=== PATIENT | male | born 1950 | race Caucasian/White ===

== ENCOUNTER 2021-06-07 00:55 | Inpatient (IN) | payer MEDICARE ==
[2021-06-07] MEDS ORDERED: Ondansetron PF 4 MG/2 ML Vial IVP PRN (01:27)
[2021-06-07] MEDS ORDERED: HYDROcodone/Acetaminophen 5/325 mg Tablet PO PRN (01:27)
[2021-06-07] MEDS ORDERED: Calcium Carbonate 500 MG ChewTAB PO PRN (01:27)
[2021-06-07] MEDS ORDERED: Guaifenesin DM 100-10/5 ML UDCUP PO PRN (01:27)
[2021-06-07] MEDS ORDERED: Senokot S 8.6-50 MG TAB PO PRN (01:27)
[2021-06-07] MEDS ORDERED: Acetaminophen 325 MG TAB PO PRN (01:27)
[2021-06-07] MEDS ORDERED: Dextrose 5% in Water 1,000 ML IV PRN (01:38)
[2021-06-07] MEDS ORDERED: Dextrose 50% Abboject 50 ML SYRINGE SLOW IVP PRN (01:38)
[2021-06-07 01:49] VITALS: BMI 24.4
[2021-06-07 02:15] LABS: Actual Bicarbonate (HCO3a) 44.6 mEq/L (22-28); Base Excess (BEa) 16.7 mEq/L (-2.0 to +3.0); CO2 Tension 68.8 mmHg (35.0-45.0); Calcium, Ionized (arterial) 1.19 mmol/L (1.12-1.30); Carboxyhemoglobin (COHb) 0.8 gm% (0.0-3.0); Hemoglobin (Hb) 13.7 g/dL (14.0-18.0); O2 Tension (PaO2), arterial 64.4 mmHg (> 80.0); Potassium - ABG Lab 4.3 mmol/L (3.70-5.30); Puncture Site RRA; pH, Arterial 7.43 (7.35-7.45)
[2021-06-07 02:23] LABS: #Monocytes 0.2 10x3/uL (0.0-1.1); #Neutrophils 9.2 10x3/uL (1.5-8.4); %Basophils 0.4 % (0.0-2.0); %Lymphocytes 3.8 % (18.0-47.0); %Monocytes 2.3 % (0.0-10.0); %Neutrophils 92.4 % (40.0-75.0); Hemoglobin 13.1 g/dL (13.5-17.5); Mean Corpuscular Hemoglobin 29.8 pg (27.0-33.0); Mean Corpuscular Volume 95.9 fl (81.2-95.1); Mean Platelet Volume 8.8 fl (7.4-10.4); Platelet Count 223 10x3/uL (150-450); RBC Distribution Width 16.7 % (11.5-14.5); White Blood Cell (WBC) Count 9.9 10x3/uL (3.5-10.5)
[2021-06-07 02:34] LABS: Bilirubin Neg (Negative); Blood, Urine Negative (Negative); Clarity Clear (Clear); Glucose, Urine (Dipstick) Normal (Negative); Ketone, Urine Negative (Negative); Leukocyte Negative (Negative); Nitrite Negative (Negative); Protein, Urine (Dipstick) Negative (Neg-Trace); Specific Gravity, Urine 1.005 (1.002-1.036); Urobilinogen Normal mg/dL (Less than 2)
[2021-06-07 02:37] LABS: BUN (Urea Nitrogen) 24 mg/dL (8.4-25.7); Calc. Creatinine Clearance 139 mL/min (70-130); Calcium 9.4 mg/dL (7.8-10.44); Glucose 226 mg/dL (80-115)
[2021-06-07 02:44] LABS: Anion Gap 20 mmol/L (10-20); Carbon Dioxide 37 mmol/L (23-31); Chloride 91 mmol/L (98-107); Potassium 5.2 mmol/L (3.5-5.1); Sodium 143 mmol/L (136-145)
[2021-06-07 02:52] LABS: Bacteria/HPF None Seen HPF (None Seen); RBC/HPF None Seen HPF (0-3); Squamous Epithelial 0-3 HPF (0-3); WBC/HPF None Seen HPF (0-3)
[2021-06-07] MEDS ORDERED: FLU VACC QS2021-22(65YR UP)/PF 240 MCG/0.7 ML SYRINGE IM ONE (03:30)
[2021-06-07] MEDS: methylPREDNISolone Sod Succ 40 MG VIAL IVP SCH ×4 (05:45→23:51)
[2021-06-07] MEDS: Mometasone/Formoterol 200/5 60 PUFF INH SCH ×2 (06:44→20:05)
[2021-06-07] MEDS ORDERED: Furosemide 40 MG TAB PO SCH (07:30)
[2021-06-07] MEDS: HumaLOG 300 UNITS/3 ML VIAL SC PRN ×3 (08:24→20:52)
[2021-06-07] MEDS: Famotidine 20 MG TAB PO SCH ×2 (08:42→20:51)
[2021-06-07] MEDS: guaiFENesin ER 600 MG TAB PO SCH ×2 (08:43→20:54)
[2021-06-07] MEDS: Carvedilol 3.125 MG TAB PO SCH ×2 (08:43→16:51)
[2021-06-07] MEDS: Benzonatate 100 MG CAP PO SCH ×3 (08:43→20:51)
[2021-06-07] MEDS ORDERED: Sotalol HCl 80 MG TAB PO SCH ×2 (09:00)
[2021-06-07] MEDS ORDERED: Polyethylene Glycol 3350 17 GM Packet PO SCH (09:00)
[2021-06-07] MEDS ORDERED: Ubidecarenone 50 MG CAP PO SCH (09:00)
[2021-06-07] MEDS ORDERED: Aspirin 81 mg Enteric Coated Tablet PO SCH (09:00)
[2021-06-07] MEDS ORDERED: Apixaban 5 MG TAB PO SCH (09:00)
[2021-06-07] MEDS ORDERED: Acetylcysteine 20% 200 MG/ML 30 ML VIAL PO SCH (09:00)
[2021-06-07 10:39] LABS: Actual Bicarbonate (HCO3v) 39 mEq/L (22-28); Base Excess 10.9 mEq/L (-2.0 to +3.0); Calcium, Ionized (venous) 1.16 mmol/L (1.16-1.32); Chloride (VBG) 90 mmol/L (98-106); Hemoglobin (Hb) 13.2 g/dL (12.6-17.4); Potassium (VBG) 4.06 mmol/L (3.70-5.30); Puncture Site Other Site; Sodium 135.5 mmol/L (133-146); pH (venous) 7.37 (7.32-7.43)
[2021-06-07 10:40] LABS: BUN (Urea Nitrogen) 27 mg/dL (8.4-25.7); Calc. Creatinine Clearance 143 mL/min (70-130); Calcium 8.9 mg/dL (7.8-10.44); Glucose 289 mg/dL (80-115)
[2021-06-07 10:47] LABS: Anion Gap 16 mmol/L (10-20); Carbon Dioxide 37 mmol/L (23-31); Chloride 90 mmol/L (98-107); Potassium 4.2 mmol/L (3.5-5.1); Sodium 139 mmol/L (136-145)
[2021-06-07] MEDS ORDERED: ALPRAZolam 0.5 MG TAB PO PRN (17:59)
[2021-06-07] MEDS: Apixaban 5 MG TAB PO SCH (20:51)
[2021-06-07] MEDS ORDERED: Montelukast Sodium 10 mg Tablet PO SCH ×2 (21:00)
[2021-06-07] MEDS ORDERED: Tamsulosin HCl 0.4 MG CAP PO SCH ×2 (21:00)
[2021-06-07] MEDS ORDERED: Lantus 1000 UNITS/10 ML VIAL SC SCH (21:00)
[2021-06-07] MEDS ORDERED: Atorvastatin Calcium 10 MG TAB PO SCH (21:00)
[2021-06-07] MEDS ORDERED: Acetylcysteine 800 MG/4 ML VIAL PO SCH (21:00)
[2021-06-07] MEDS ORDERED: Amiodarone 200 MG TAB PO SCH (21:00)
[2021-06-08 03:34] LABS: #Monocytes 0.4 10x3/uL (0.0-1.1); #Neutrophils 10.3 10x3/uL (1.5-8.4); %Basophils 0.1 % (0.0-2.0); %Lymphocytes 3.4 % (18.0-47.0); %Monocytes 3.7 % (0.0-10.0); %Neutrophils 91.8 % (40.0-75.0); Hemoglobin 13.2 g/dL (13.5-17.5); Mean Corpuscular HGB CONC 31.2 g/dL (32.0-36.0); Mean Corpuscular Hemoglobin 29.7 pg (27.0-33.0); Mean Corpuscular Volume 95.1 fl (81.2-95.1); Platelet Count 217 10x3/uL (150-450); Red Blood Cell (RBC) Count 4.45 10x6/uL (4.32-5.72); White Blood Cell (WBC) Count 11.3 10x3/uL (3.5-10.5)
[2021-06-08 04:44] VITALS: TEMP 98
[2021-06-08] MEDS: methylPREDNISolone Sod Succ 40 MG VIAL IVP SCH (05:29)
[2021-06-08 06:28] LABS: ALT (SGPT) 19 U/L (8-55); AST (SGOT) 14 U/L (5-34); Albumin 3.1 g/dL (3.4-4.8); Alkaline Phosphatase 66 U/L (40-110); BUN (Urea Nitrogen) 31 mg/dL (8.4-25.7); Bilirubin, Total 0.2 mg/dL (0.2-1.2); Calc. Creatinine Clearance 139 mL/min (70-130); Calcium 9.2 mg/dL (7.8-10.44); Cardiac Risk 3.1 (Less than 4.5); Cholesterol 176 mg/dl (< 200 Desired); Globulin 2.1 g/dL (2.4-3.5); Glucose 248 mg/dL (80-115); HDL Cholesterol 57 mg/dL (>60 Neg Risk); LDL Cholesterol, Calculated 101 mg/dL; Magnesium 2.2 mg/dL (1.6-2.6); Phosphorus 2.7 mg/dL (2.3-4.7); Protein, Total 5.2 g/dL (5.8-8.1); Triglycerides 90 mg/dL (Less than 150)
[2021-06-08 06:36] LABS: Anion Gap 16 mmol/L (10-20); Carbon Dioxide 35 mmol/L (23-31); Chloride 93 mmol/L (98-107); Potassium 4.4 mmol/L (3.5-5.1); Sodium 140 mmol/L (136-145)
[2021-06-08] MEDS ORDERED: glipiZIDE 5 MG TAB PO SCH (07:30)
[2021-06-08] MEDS ORDERED: metFORMIN 500 MG TAB PO SCH (08:00)
[2021-06-08] MEDS ORDERED: Carvedilol 3.125 MG TAB PO SCH (08:00)
[2021-06-08] MEDS: Famotidine 20 MG TAB PO SCH (08:25)
[2021-06-08] MEDS: Apixaban 5 MG TAB PO SCH (08:25)
[2021-06-08] MEDS: guaiFENesin ER 600 MG TAB PO SCH (08:26)
[2021-06-08] MEDS: Benzonatate 100 MG CAP PO SCH (08:26)
[2021-06-08] MEDS: HumaLOG 300 UNITS/3 ML VIAL SC PRN (08:28)
[2021-06-08 08:38] VITALS: BP 143/77
[2021-06-08] MEDS: Mometasone/Formoterol 200/5 60 PUFF INH SCH (08:38)
[2021-06-08] MEDS ORDERED: Digoxin 0.25 MG TAB PO SCH (09:00)
[2021-06-08] MEDS ORDERED: Polyethylene Glycol 3350 17 GM Packet PO SCH (09:00)
[2021-06-08] MEDS ORDERED: Aspirin 81 mg Enteric Coated Tablet PO SCH (09:00)
[2021-06-08] MEDS ORDERED: Multivit, Therapeutic 1 TAB PO SCH (09:00)
[2021-06-08] MEDS ORDERED: Furosemide 40 MG TAB PO SCH (09:00)
[2021-06-08] MEDS ORDERED: Ubidecarenone 50 MG CAP PO SCH (09:00)
[2021-06-08] MEDS ORDERED: Sotalol HCl 80 MG TAB PO SCH (09:00)
[2021-06-08 11:30] LABS: Hemoglobin A1c 5.4 % (4.0-6.0)
== END 2021-06-08 12:15 | disposition home or self-care (01) | DRG 291 ==
LOC: CSHIMCU 00:55
PROVIDERS: ADMIT Student in an Organized Health Care Education/Training Program; ATTEND Family Medicine
DX: I11.0 Hypertensive heart disease with heart failure (principal); J96.21 Acute and chronic respiratory failure with hypoxia; I50.43 Acute on chronic combined systolic (congestive) and diastolic (congestive) heart failure; J96.22 Acute and chronic respiratory failure with hypercapnia; J44.1 Chronic obstructive pulmonary disease with (acute) exacerbation; E87.2 Acidosis; E11.65 Type 2 diabetes mellitus with hyperglycemia; N40.0 Benign prostatic hyperplasia without lower urinary tract symptoms; I42.8 Other cardiomyopathies; E78.2 Mixed hyperlipidemia; I95.1 Orthostatic hypotension; I48.0 Paroxysmal atrial fibrillation; Z99.81 Dependence on supplemental oxygen; Z95.810 Presence of automatic (implantable) cardiac defibrillator; Z79.01 Long term (current) use of anticoagulants; Z79.82 Long term (current) use of aspirin; Z79.899 Other long term (current) drug therapy; Z86.711 Personal history of pulmonary embolism; Z87.891 Personal history of nicotine dependence; Z79.52 Long term (current) use of systemic steroids
CPT/HCPCS: 36415; 36416; 36600; 80048; 80053; 80061; 81001; 82805; 83036; 83735; 84100; 85025; 87070; 87205; 87804; 90471; 90662; 93306; 94640; 94760; G0008; J1815; J2920; J7620

== ENCOUNTER 2021-06-17 19:56 | Emergency (ER) | payer MEDICARE ==
[2021-06-17 20:32] LABS: #Monocytes 0.6 10x3/uL (0.0-1.1); %Basophils 0.2 % (0.0-2.0); %Lymphocytes 3.4 % (18.0-47.0); %Monocytes 4.5 % (0.0-10.0); %Neutrophils 89.7 % (40.0-75.0); Hemoglobin 12.8 g/dL (13.5-17.5); Mean Corpuscular HGB CONC 30.6 g/dL (32.0-36.0); Mean Corpuscular Hemoglobin 29.6 pg (27.0-33.0); Mean Corpuscular Volume 96.8 fl (81.2-95.1); Mean Platelet Volume 8.7 fl (7.4-10.4); Platelet Count 209 10x3/uL (150-450); RBC Distribution Width 15.9 % (11.5-14.5); Red Blood Cell (RBC) Count 4.32 10x6/uL (4.32-5.72); White Blood Cell (WBC) Count 13.4 10x3/uL (3.5-10.5)
[2021-06-17 20:42] LABS: ALT (SGPT) 35 U/L (8-55); AST (SGOT) 21 U/L (5-34); Albumin 3.1 g/dL (3.4-4.8); Alkaline Phosphatase 78 U/L (40-110); BUN (Urea Nitrogen) 27 mg/dL (8.4-25.7); Bilirubin, Total 0.4 mg/dL (0.2-1.2); Calc. Creatinine Clearance 0 mL/min (70-130); Calcium 8.8 mg/dL (7.8-10.44); Globulin 1.8 g/dL (2.4-3.5); Glucose 178 mg/dL (80-115); Protein, Total 4.9 g/dL (5.8-8.1)
[2021-06-17 20:49] LABS: Anion Gap 14 mmol/L (10-20); Carbon Dioxide 40 mmol/L (23-31); Chloride 89 mmol/L (98-107); Potassium 5.2 mmol/L (3.5-5.1); Sodium 138 mmol/L (136-145)
[2021-06-17 21:04] LABS: CKMB 5.7 ng/mL (0-6.6)
[2021-06-17] MEDS ORDERED: Furosemide 40 MG/4 ML VIAL ONE (21:42)
[2021-06-17] MEDS ORDERED: Aspirin Chewable 81 MG TAB ONE (21:42)
[2021-06-18 00:55] LABS: SARS-CoV-2 NAA Rapid Test Not Detected (NotDetected)
== END 2021-06-18 01:04 | disposition short-term general hospital (02) ==
LOC: CSHERS 19:56
DX: I11.0 Hypertensive heart disease with heart failure (principal); I50.9 Heart failure, unspecified; J44.9 Chronic obstructive pulmonary disease, unspecified; Z20.822 Contact with and (suspected) exposure to COVID-19; Z87.891 Personal history of nicotine dependence; Z95.810 Presence of automatic (implantable) cardiac defibrillator; Z86.718 Personal history of other venous thrombosis and embolism
CPT/HCPCS: 71045; 80053; 82553; 83880; 84484; 85025; 93005; 96374; J1940; U0002

== ENCOUNTER 2023-03-19 13:13 | Inpatient (IN) | payer OTHER ==
[~2023-03-19 13:13] MED LIST: Iopamidol 370 76% 100 ML VIAL ONE
[2023-03-19 14:24] LABS: #Eosinphils 0.1 10x3/uL (0.0-0.5); #Monocytes 0.5 10x3/uL (0.0-1.1); #Neutrophils 6.2 10x3/uL (1.5-8.4); %Basophils 0.4 % (0.0-2.0); %Eosinophils 1.7 % (0.0-6.0); %Lymphocytes 7.5 % (18.0-47.0); %Monocytes 6.7 % (0.0-10.0); %Neutrophils 83.3 % (40.0-75.0); Hematocrit 40.7 % (38.8-50.0); Hemoglobin 11.5 g/dL (13.5-17.5); Mean Corpuscular HGB CONC 28.3 g/dL (32.0-36.0); Mean Corpuscular Volume 99.3 fl (81.2-95.1); Mean Platelet Volume 9.3 fl (7.4-10.4); Platelet Count 195 10x3/uL (150-450); RBC Distribution Width 13.9 % (11.5-14.5); White Blood Cell (WBC) Count 7.5 10x3/uL (3.5-10.5)
[2023-03-19 14:47] LABS: ALT (SGPT) 9 U/L (8-55); AST (SGOT) 15 U/L (5-34); Albumin 2.8 g/dL (3.4-4.8); Alkaline Phosphatase 81 U/L (40-110); BUN (Urea Nitrogen) 15 mg/dL (8.4-25.7); Bilirubin, Total 0.2 mg/dL (0.2-1.2); Calc. Creatinine Clearance 0 mL/min (70-130); Calcium 9.2 mg/dL (7.8-10.44); Estimated GFR 102; Globulin 2.5 g/dL (2.4-3.5); Glucose 132 mg/dL (83-110); Protein, Total 5.3 g/dL (5.8-8.1)
[2023-03-19 14:53] LABS: Troponin I Less than 0.010 ng/mL (< 0.028)
[2023-03-19 14:54] LABS: Anion Gap 13 mmol/L (10-20); Carbon Dioxide 44 mmol/L (23-31); Chloride 89 mmol/L (98-107); Potassium 4.4 mmol/L (3.5-5.1); Sodium 142 mmol/L (136-145)
[2023-03-19 15:33] LABS: Magnesium 2.1 mg/dL (1.6-2.6)
[2023-03-19 15:54] LABS: Bilirubin Neg (Negative); Blood, Urine 10 (Negative); Clarity Clear (Clear); Glucose, Urine (Dipstick) Normal (Negative); Ketone, Urine Negative (Negative); Leukocyte Negative (Negative); Nitrite Positive (Negative); Protein, Urine (Dipstick) 15 mg/dl (Neg-Trace); Urobilinogen Normal mg/dL (Less than 2)
[2023-03-19 16:46] LABS: Basophilic Stippling SLIGHT = 1-2 cells (100X) (None Seen); Polychromasia SLIGHT = 2-3 cells (100X) (0-2/hpf)
[2023-03-19 16:48] LABS: Hypochromia SLIGHT = 6-15 cells (100X) (0-5/hpf); Platelet Adequacy Comment Appears Adequate
[2023-03-19 16:54] LABS: CAUTI Indications for Culture Dysuria,urgency,freq; RBC/HPF 0-3 HPF (0-3)
[2023-03-19 16:55] LABS: Mucous/LPF 1+ LPF (<2+); Squamous Epithelial 0-3 HPF (0-3)
[2023-03-19 16:56] LABS: Bacteria/HPF 3+ HPF (None Seen); Urine Culture Reflex No No
[2023-03-19] MEDS ORDERED: cefTRIAXone (ROCEPHIN) 1 GM VIAL ONE (17:12)
[2023-03-19] MEDS ORDERED: Acetaminophen 650 MG Suppository PR PRN (17:17)
[2023-03-19] MEDS ORDERED: Ipratropium/Albuterol 3 ML NEB NEB PRN (17:20)
[2023-03-19 17:21] LABS: SARS-CoV-2 NAA Rapid Test Not Detected (NotDetected)
[2023-03-19] MEDS ORDERED: cefTRIAXone\\ROCEPHIN 1 GM in Sodium Chloride 0.9% 100 ML IVPB SCH (17:30)
[2023-03-19 17:46] LABS: Troponin I Less than 0.010 ng/mL (< 0.028)
[2023-03-19] MEDS ORDERED: Ipratropium Bromide 2.5 ml Neb NEB PRN (18:25)
[2023-03-19] MEDS: Mometasone/Formoterol 200/5 60 PUFF INH SCH (19:00)
[2023-03-19] MEDS: Ipratropium/Albuterol 3 ML NEB NEB SCH (19:00)
[2023-03-19 20:46] LABS: Troponin I Less than 0.010 ng/mL (< 0.028)
[2023-03-19] MEDS: Cefepime 2 GM in Sodium Chloride 0.9% 100 ML IVPB SCH (21:00)
[2023-03-19] MEDS ORDERED: Apixaban 5 MG TAB PO SCH (21:00)
[2023-03-19] MEDS: Vancomycin 1.5 GRAM/300 ML BAG 1.5 GM in Premix Bag 1 BAG IVPB SCH (21:28)
[2023-03-19 22:00] LABS: Actual Bicarbonate (HCO3a) 52.1 mEq/L (22-28); Base Excess (BEa) 16.7 mEq/L (-2.0 to +3.0); CO2 Tension 166.5 mmHg (35.0-45.0); Calcium, Ionized (arterial) 1.24 mmol/L (1.12-1.30); Carboxyhemoglobin (COHb) 0.7 gm% (0.0-3.0); Hematocrit-ABG 36 % (42.0-52.0); Hemoglobin (Hb) 12.1 g/dL (14.0-18.0); O2 Tension (PaO2), arterial 140.6 mmHg (> 70.0); Potassium - ABG Lab 4.79 mmol/L (3.70-5.30); Puncture Site LBA; pH, Arterial 7.113 (7.35-7.45)
[2023-03-19 22:03] LABS: ALV-art Gradient -92.045 mmHg (0-20)
[2023-03-19 22:26] LABS: Legionella Urinary Ag Negative (Negative)
[2023-03-19] MEDS: methylPREDNISolone Sod Succ 40 MG VIAL IVP SCH (23:06)
[2023-03-19] MEDS ORDERED: Lorazepam 2 MG/ML VIAL SLOW IVP SCH (23:45)
[2023-03-19] MEDS ORDERED: Morphine 2 MG/ML VIAL SLOW IVP SCH (23:45)
[2023-03-20] MEDS ORDERED: Sterile Water 10 ML ONE (00:27)
[2023-03-20] MEDS ORDERED: Lorazepam 2 MG/ML VIAL SLOW IVP SCH (00:30)
[2023-03-20] MEDS ORDERED: Sterile Water 10 ML VIAL FS PRN (00:30)
[2023-03-20] MEDS ORDERED: Ziprasidone 20 MG VIAL IM SCH (00:30)
[2023-03-20] MEDS: Ipratropium/Albuterol 3 ML NEB NEB SCH ×6 (01:04→22:50)
[2023-03-20 01:18] LABS: Base Excess 12.2 mEq/L (-2 - +2); Chloride (VBG) 92 mmol/L (98-106); Hematocrit-VBG 39 % (42.0-52.0); Hemoglobin (Hb) 13.1 g/dL (12.6-17.4); Potassium (VBG) 4.97 mmol/L (3.70-5.30); Puncture Site Other Site; RapidComm Collect By LAB; Sodium 137.2 mmol/L (133-146); pH (venous) 7.316 (7.32-7.43)
[2023-03-20 04:25] LABS: #Monocytes 0.3 10x3/uL (0.0-1.1); #Neutrophils 10.3 10x3/uL (1.5-8.4); %Basophils 0.1 % (0.0-2.0); %Lymphocytes 2.6 % (18.0-47.0); %Monocytes 2.5 % (0.0-10.0); %Neutrophils 94.2 % (40.0-75.0); Hematocrit 41.9 % (38.8-50.0); Hemoglobin 11.8 g/dL (13.5-17.5); Mean Corpuscular HGB CONC 28.2 g/dL (32.0-36.0); Mean Corpuscular Hemoglobin 27.9 pg (27.0-33.0); Mean Corpuscular Volume 99.1 fl (81.2-95.1); Mean Platelet Volume 9.2 fl (7.4-10.4); Platelet Count 251 10x3/uL (150-450); Red Blood Cell (RBC) Count 4.23 10x6/uL (4.32-5.72); White Blood Cell (WBC) Count 10.9 10x3/uL (3.5-10.5)
[2023-03-20 04:36] LABS: BUN (Urea Nitrogen) 18 mg/dL (8.4-25.7); Calc. Creatinine Clearance 149 mL/min (70-130); Calcium 9.5 mg/dL (7.8-10.44); Estimated GFR 100; Glucose 132 mg/dL (83-110)
[2023-03-20 04:44] LABS: Anion Gap 17 mmol/L (10-20); Carbon Dioxide 43 mmol/L (23-31); Chloride 89 mmol/L (98-107); Potassium 5.3 mmol/L (3.5-5.1); Sodium 144 mmol/L (136-145)
[2023-03-20] MEDS: methylPREDNISolone Sod Succ 40 MG VIAL IVP SCH ×4 (05:06→23:06)
[2023-03-20] MEDS: Mometasone/Formoterol 200/5 60 PUFF INH SCH ×2 (07:42→19:25)
[2023-03-20] MEDS: Cefepime 2 GM in Sodium Chloride 0.9% 100 ML IVPB SCH ×2 (07:51→20:39)
[2023-03-20] MEDS: Finasteride 5 MG TAB PO SCH (07:55)
[2023-03-20] MEDS: Aspirin 81 mg Enteric Coated Tablet PO SCH (07:55)
[2023-03-20] MEDS: Montelukast Sodium 10 mg Tablet PO SCH (07:55)
[2023-03-20] MEDS: Sotalol HCl 80 MG TAB PO SCH (08:01)
[2023-03-20] MEDS: Vancomycin 1.5 GRAM/300 ML BAG 1.5 GM in Premix Bag 1 BAG IVPB SCH ×2 (10:11→22:34)
[2023-03-20] MEDS: Lorazepam 2 MG/ML VIAL SLOW IVP PRN ×3 (11:26→23:04)
[2023-03-20] MEDS: Thiamine HCl 200 MG/2 ML VIAL SLOW IVP SCH (13:08)
[2023-03-20 14:57] LABS: BUN (Urea Nitrogen) 17 mg/dL (8.4-25.7); Calc. Creatinine Clearance 159 mL/min (70-130); Estimated GFR 101; Glucose 137 mg/dL (83-110)
[2023-03-20 15:04] LABS: Anion Gap 15 mmol/L (10-20); Carbon Dioxide 43 mmol/L (23-31); Chloride 90 mmol/L (98-107); Potassium 4.7 mmol/L (3.5-5.1); Sodium 143 mmol/L (136-145)
[2023-03-20] MEDS ORDERED: Dextrose 5 % And 0.9 % NaCl 1,000 ML IV SCH (16:15)
[2023-03-20] MEDS: Tamsulosin HCl 0.4 MG CAP PO SCH (20:39)
[2023-03-20] MEDS: Atorvastatin Calcium 20 MG TAB PO SCH (20:39)
[2023-03-21] MEDS ORDERED: Morphine 2 MG/ML VIAL SLOW IVP SCH (01:45)
[2023-03-21] MEDS: Ipratropium/Albuterol 3 ML NEB NEB SCH ×6 (02:35→22:30)
[2023-03-21 04:45] LABS: #Monocytes 0.7 10x3/uL (0.0-1.1); #Neutrophils 8.2 10x3/uL (1.5-8.4); %Basophils 0.1 % (0.0-2.0); %Lymphocytes 3.5 % (18.0-47.0); %Monocytes 7.3 % (0.0-10.0); %Neutrophils 88.8 % (40.0-75.0); Hematocrit 35.1 % (38.8-50.0); Hemoglobin 10.3 g/dL (13.5-17.5); Mean Corpuscular HGB CONC 29.3 g/dL (32.0-36.0); Mean Corpuscular Hemoglobin 27.5 pg (27.0-33.0); Mean Corpuscular Volume 93.6 fl (81.2-95.1); Mean Platelet Volume 9.2 fl (7.4-10.4); Platelet Count 266 10x3/uL (150-450); RBC Distribution Width 14.3 % (11.5-14.5); Red Blood Cell (RBC) Count 3.75 10x6/uL (4.32-5.72); White Blood Cell (WBC) Count 9.2 10x3/uL (3.5-10.5)
[2023-03-21 04:57] LABS: BUN (Urea Nitrogen) 21 mg/dL (8.4-25.7); Calc. Creatinine Clearance 150 mL/min (70-130); Calcium 9.1 mg/dL (7.8-10.44); Estimated GFR 100; Glucose 127 mg/dL (83-110)
[2023-03-21 05:02] LABS: Phosphorus 2.1 mg/dL (2.3-4.7)
[2023-03-21] MEDS: methylPREDNISolone Sod Succ 40 MG VIAL IVP SCH ×3 (05:10→17:47)
[2023-03-21] MEDS: Lorazepam 2 MG/ML VIAL SLOW IVP PRN (05:10)
[2023-03-21 05:17] LABS: Anion Gap 18 mmol/L (10-20); Carbon Dioxide 36 mmol/L (23-31); Chloride 92 mmol/L (98-107); Potassium 4.7 mmol/L (3.5-5.1); Sodium 141 mmol/L (136-145)
[2023-03-21] MEDS: Mometasone/Formoterol 200/5 60 PUFF INH SCH ×2 (07:28→18:45)
[2023-03-21] MEDS ORDERED: acetaZOLAMIDE Sodium 500 mg Vial IVP SCH (08:00)
[2023-03-21] MEDS: Aspirin 81 mg Enteric Coated Tablet PO SCH (08:28)
[2023-03-21] MEDS: Finasteride 5 MG TAB PO SCH (08:29)
[2023-03-21] MEDS ORDERED: Sodium Phosphate 15 MMOL in Sodium Chloride 0.9% 250 ML 250 ML IVPB SCH (08:30)
[2023-03-21] MEDS: Sotalol HCl 80 MG TAB PO SCH (08:31)
[2023-03-21] MEDS: Montelukast Sodium 10 mg Tablet PO SCH (08:31)
[2023-03-21] MEDS: Sertraline 100 MG TAB PO SCH (08:31)
[2023-03-21] MEDS: Cefepime 2 GM in Sodium Chloride 0.9% 100 ML IVPB SCH ×2 (08:32→21:23)
[2023-03-21] MEDS: Metoprolol Tartrate 5 MG/5 ML VIAL IVP SCH ×2 (08:38→21:24)
[2023-03-21 09:44] LABS: Vancomycin, Trough 15.1 ug/mL
[2023-03-21] MEDS: Vancomycin 1.5 GRAM/300 ML BAG 1.5 GM in Premix Bag 1 BAG IVPB SCH (10:14)
[2023-03-21] MEDS: Thiamine HCl 200 MG/2 ML VIAL SLOW IVP SCH (14:06)
[2023-03-21] MEDS ORDERED: Polyethylene Glycol 3350 17 GM Packet PO PRN (15:57)
[2023-03-21] MEDS ORDERED: D5W-AA 4.25% with LYTES 1,000 ML BAG(PPN) IV SCH (16:00)
[2023-03-21] MEDS ORDERED: D5W-AA 4.25% with LYTES 1,000 ML IV SCH (17:00)
[2023-03-21] MEDS: Tamsulosin HCl 0.4 MG CAP PO SCH (20:28)
[2023-03-21] MEDS: Senokot S 8.6-50 MG TAB PO SCH (20:28)
[2023-03-21] MEDS: Atorvastatin Calcium 20 MG TAB PO SCH (20:28)
[2023-03-21] MEDS: Pantoprazole 40 MG VIAL IVP SCH (21:24)
[2023-03-22] MEDS: methylPREDNISolone Sod Succ 40 MG VIAL IVP SCH ×2 (00:36→05:23)
[2023-03-22] MEDS: Ipratropium/Albuterol 3 ML NEB NEB SCH ×6 (03:00→22:46)
[2023-03-22 03:40] LABS: Actual Bicarbonate (HCO3v) 34.6 mEq/L (22-28); Base Excess 8.1 mEq/L (-2 - +2); Calcium, Ionized (venous) 1.11 mmol/L (1.16-1.32); Chloride (VBG) 96 mmol/L (98-106); Critical Notified By: CP.PH; Hematocrit-VBG 36 % (42.0-52.0); Hemoglobin (Hb) 12.1 g/dL (12.6-17.4); Potassium (VBG) 4.08 mmol/L (3.70-5.30); Puncture Site Other Site; Sodium 136.8 mmol/L (133-146); pH (venous) 7.397 (7.32-7.43)
[2023-03-22 04:10] LABS: #Monocytes 0.4 10x3/uL (0.0-1.1); #Neutrophils 7.2 10x3/uL (1.5-8.4); %Lymphocytes 2.9 % (18.0-47.0); %Monocytes 5.4 % (0.0-10.0); %Neutrophils 91.4 % (40.0-75.0); Mean Corpuscular HGB CONC 28.9 g/dL (32.0-36.0); Mean Corpuscular Hemoglobin 27.1 pg (27.0-33.0); Mean Corpuscular Volume 93.6 fl (81.2-95.1); Mean Platelet Volume 9.1 fl (7.4-10.4); Platelet Count 232 10x3/uL (150-450); RBC Distribution Width 14.2 % (11.5-14.5); Red Blood Cell (RBC) Count 4.06 10x6/uL (4.32-5.72); White Blood Cell (WBC) Count 7.8 10x3/uL (3.5-10.5)
[2023-03-22 04:15] LABS: BUN (Urea Nitrogen) 21 mg/dL (8.4-25.7); Calc. Creatinine Clearance 146 mL/min (70-130); Calcium 8.7 mg/dL (7.8-10.44); Estimated GFR 99; Glucose 160 mg/dL (83-110); Magnesium 2.2 mg/dL (1.6-2.6)
[2023-03-22 04:24] LABS: Anion Gap 16 mmol/L (10-20); Carbon Dioxide 34 mmol/L (23-31); Chloride 96 mmol/L (98-107); Potassium 4.2 mmol/L (3.5-5.1); Sodium 142 mmol/L (136-145)
[2023-03-22 04:25] LABS: Phosphorus 3.2 mg/dL (2.3-4.7)
[2023-03-22] MEDS: Mometasone/Formoterol 200/5 60 PUFF INH SCH ×2 (06:53→18:36)
[2023-03-22] MEDS: Aspirin 81 mg Enteric Coated Tablet PO SCH (08:05)
[2023-03-22] MEDS: Cefepime 2 GM in Sodium Chloride 0.9% 100 ML IVPB SCH ×2 (08:06→21:05)
[2023-03-22] MEDS: Montelukast Sodium 10 mg Tablet PO SCH (08:07)
[2023-03-22] MEDS: Metoprolol Tartrate 5 MG/5 ML VIAL IVP SCH (08:07)
[2023-03-22] MEDS: Finasteride 5 MG TAB PO SCH (08:07)
[2023-03-22] MEDS: Pantoprazole 40 MG VIAL IVP SCH ×2 (08:08→21:05)
[2023-03-22] MEDS: Senokot S 8.6-50 MG TAB PO SCH ×2 (08:08→21:06)
[2023-03-22] MEDS: Sotalol HCl 80 MG TAB PO SCH (08:08)
[2023-03-22] MEDS: Sertraline 100 MG TAB PO SCH (08:08)
[2023-03-22] MEDS: Acetaminophen 325 MG TAB PO PRN (14:06)
[2023-03-22] MEDS: Thiamine HCl 200 MG/2 ML VIAL SLOW IVP SCH (14:06)
[2023-03-22] MEDS: Tamsulosin HCl 0.4 MG CAP PO SCH (21:05)
[2023-03-22] MEDS: guaiFENesin ER 600 MG TAB PO SCH (21:05)
[2023-03-22] MEDS: Atorvastatin Calcium 20 MG TAB PO SCH (21:06)
[2023-03-22] MEDS: Apixaban 5 MG TAB PO SCH (21:06)
[2023-03-23] MEDS: Ipratropium/Albuterol 3 ML NEB NEB SCH ×6 (02:11→22:59)
[2023-03-23 06:16] LABS: #Monocytes 0.7 10x3/uL (0.0-1.1); #Neutrophils 6.4 10x3/uL (1.5-8.4); %Lymphocytes 6.1 % (18.0-47.0); %Monocytes 9.5 % (0.0-10.0); Hematocrit 36.8 % (38.8-50.0); Hemoglobin 10.8 g/dL (13.5-17.5); Mean Corpuscular HGB CONC 29.3 g/dL (32.0-36.0); Mean Corpuscular Hemoglobin 27.4 pg (27.0-33.0); Mean Corpuscular Volume 93.4 fl (81.2-95.1); Mean Platelet Volume 9.7 fl (7.4-10.4); Platelet Count 193 10x3/uL (150-450); RBC Distribution Width 14.3 % (11.5-14.5); Red Blood Cell (RBC) Count 3.94 10x6/uL (4.32-5.72); White Blood Cell (WBC) Count 7.6 10x3/uL (3.5-10.5)
[2023-03-23 06:20] LABS: BUN (Urea Nitrogen) 21 mg/dL (8.4-25.7); Calc. Creatinine Clearance 152 mL/min (70-130); Calcium 9.1 mg/dL (7.8-10.44); Estimated GFR 100; Glucose 109 mg/dL (83-110); Magnesium 2.3 mg/dL (1.6-2.6)
[2023-03-23 06:26] LABS: ALT (SGPT) 16 U/L (8-55); AST (SGOT) 21 U/L (5-34); Albumin 2.9 g/dL (3.4-4.8); Alkaline Phosphatase 64 U/L (40-110); Bilirubin, Direct 0.2 mg/dL (0.1-0.3); Bilirubin, Total 0.4 mg/dL (0.2-1.2)
[2023-03-23 06:37] LABS: Anion Gap 15 mmol/L (10-20); Carbon Dioxide 34 mmol/L (23-31); Chloride 97 mmol/L (98-107); Phosphorus 1.6 mg/dL (2.3-4.7); Potassium 3.8 mmol/L (3.5-5.1); Sodium 142 mmol/L (136-145)
[2023-03-23] MEDS: Mometasone/Formoterol 200/5 60 PUFF INH SCH ×2 (07:00→19:25)
[2023-03-23] MEDS ORDERED: Aspirin 81 mg Enteric Coated Tablet PO SCH (09:00)
[2023-03-23] MEDS: PHOS-NAK 1 PKT PACK PO SCH ×3 (10:40→18:22)
[2023-03-23] MEDS: Senokot S 8.6-50 MG TAB PO SCH ×2 (10:47→21:18)
[2023-03-23] MEDS: predniSONE 50 MG TAB PO SCH (10:47)
[2023-03-23] MEDS: Finasteride 5 MG TAB PO SCH (10:48)
[2023-03-23] MEDS: Apixaban 5 MG TAB PO SCH ×2 (10:48→21:18)
[2023-03-23] MEDS: Sotalol HCl 80 MG TAB PO SCH (10:49)
[2023-03-23] MEDS: Montelukast Sodium 10 mg Tablet PO SCH (10:49)
[2023-03-23] MEDS: Sertraline 100 MG TAB PO SCH (10:50)
[2023-03-23] MEDS: Furosemide 20 MG TAB PO SCH (10:51)
[2023-03-23] MEDS: Aspirin 81 mg Enteric Coated Tablet PO SCH (10:51)
[2023-03-23] MEDS: guaiFENesin ER 600 MG TAB PO SCH ×2 (10:51→21:18)
[2023-03-23] MEDS: Acetaminophen 325 MG TAB PO PRN (10:51)
[2023-03-23] MEDS: Cefepime 2 GM in Sodium Chloride 0.9% 100 ML IVPB SCH ×2 (10:53→21:18)
[2023-03-23] MEDS: Pantoprazole 40 MG VIAL IVP SCH (12:06)
[2023-03-23] MEDS: Thiamine HCl 200 MG/2 ML VIAL SLOW IVP SCH (14:55)
[2023-03-23] MEDS: Tamsulosin HCl 0.4 MG CAP PO SCH (21:18)
[2023-03-23] MEDS: Atorvastatin Calcium 20 MG TAB PO SCH (21:18)
[2023-03-24] MEDS: Ipratropium/Albuterol 3 ML NEB NEB SCH ×6 (03:27→23:06)
[2023-03-24 04:55] LABS: Hematocrit 34.8 % (38.8-50.0); Hemoglobin 10.5 g/dL (13.5-17.5); Mean Corpuscular HGB CONC 30.2 g/dL (32.0-36.0); Mean Corpuscular Hemoglobin 27.3 pg (27.0-33.0); Mean Corpuscular Volume 90.6 fl (81.2-95.1); Mean Platelet Volume 9.8 fl (7.4-10.4); Platelet Count 164 10x3/uL (150-450); RBC Distribution Width 14.2 % (11.5-14.5); Red Blood Cell (RBC) Count 3.84 10x6/uL (4.32-5.72); White Blood Cell (WBC) Count 6.6 10x3/uL (3.5-10.5)
[2023-03-24 05:08] LABS: Anion Gap 8 mmol/L (10-20); BUN (Urea Nitrogen) 25 mg/dL (8.4-25.7); Calc. Creatinine Clearance 164 mL/min (70-130); Calcium 8.4 mg/dL (7.8-10.44); Carbon Dioxide 37 mmol/L (23-31); Chloride 98 mmol/L (98-107); Estimated GFR 102; Glucose 103 mg/dL (83-110); Potassium 3.9 mmol/L (3.5-5.1); Sodium 139 mmol/L (136-145)
[2023-03-24 05:29] LABS: MDiff Complete? YES
[2023-03-24 05:55] LABS: Platelet Adequacy Comment Appears Adequate; RBC Morph Comment Within Normal Limits
[2023-03-24 06:01] LABS: Band 8 % (5-11); Lymphocytes 9 % (21-51); Monocytes 9 % (0-10); Neutrophil 74 % (42-75)
[2023-03-24 06:51] LABS: Magnesium 2.1 mg/dL (1.6-2.6)
[2023-03-24] MEDS: Mometasone/Formoterol 200/5 60 PUFF INH SCH ×2 (07:05→19:43)
[2023-03-24] MEDS: Montelukast Sodium 10 mg Tablet PO SCH (08:42)
[2023-03-24] MEDS: predniSONE 50 MG TAB PO SCH (08:42)
[2023-03-24] MEDS: PHOS-NAK 1 PKT PACK PO SCH (08:42)
[2023-03-24] MEDS: Sertraline 100 MG TAB PO SCH (08:42)
[2023-03-24] MEDS: Apixaban 5 MG TAB PO SCH ×2 (08:43→20:25)
[2023-03-24] MEDS: Finasteride 5 MG TAB PO SCH (08:43)
[2023-03-24] MEDS: Sotalol HCl 80 MG TAB PO SCH (08:43)
[2023-03-24] MEDS: Furosemide 20 MG TAB PO SCH (08:43)
[2023-03-24] MEDS: Cefepime 2 GM in Sodium Chloride 0.9% 100 ML IVPB SCH ×2 (08:43→20:25)
[2023-03-24] MEDS: Senokot S 8.6-50 MG TAB PO SCH ×2 (08:43→20:26)
[2023-03-24] MEDS: Aspirin 81 mg Enteric Coated Tablet PO SCH (08:43)
[2023-03-24] MEDS: guaiFENesin ER 600 MG TAB PO SCH ×2 (08:43→20:25)
[2023-03-24] MEDS: Thiamine HCl 200 MG/2 ML VIAL SLOW IVP SCH (13:50)
[2023-03-24] MEDS: UBIDECARENONE 400 MG PO SCH ×2 (15:11→15:12)
[2023-03-24] MEDS: Atorvastatin Calcium 20 MG TAB PO SCH (20:25)
[2023-03-24] MEDS: Tamsulosin HCl 0.4 MG CAP PO SCH (20:26)
[2023-03-24] MEDS: Melatonin 3 MG TAB PO PRN (20:27)
[2023-03-25] MEDS: Ipratropium/Albuterol 3 ML NEB NEB SCH ×6 (03:10→22:30)
[2023-03-25 06:04] LABS: Hemoglobin 11.2 g/dL (13.5-17.5); Mean Corpuscular HGB CONC 30.3 g/dL (32.0-36.0); Mean Corpuscular Hemoglobin 27.5 pg (27.0-33.0); Mean Corpuscular Volume 90.7 fl (81.2-95.1); Mean Platelet Volume 10.1 fl (7.4-10.4); Platelet Count 148 10x3/uL (150-450); RBC Distribution Width 14.2 % (11.5-14.5); Red Blood Cell (RBC) Count 4.08 10x6/uL (4.32-5.72); White Blood Cell (WBC) Count 7.8 10x3/uL (3.5-10.5)
[2023-03-25 06:24] LABS: Anion Gap 11 mmol/L (10-20); BUN (Urea Nitrogen) 25 mg/dL (8.4-25.7); Calc. Creatinine Clearance 157 mL/min (70-130); Calcium 8.1 mg/dL (7.8-10.44); Carbon Dioxide 32 mmol/L (23-31); Chloride 101 mmol/L (98-107); Estimated GFR 101; Glucose 105 mg/dL (83-110); Magnesium 2.1 mg/dL (1.6-2.6); Potassium 4.3 mmol/L (3.5-5.1); Sodium 140 mmol/L (136-145)
[2023-03-25 06:25] LABS: MDiff Complete? YES
[2023-03-25 06:27] LABS: Platelet Adequacy Comment Appears Adequate; RBC Morph Comment Within Normal Limits
[2023-03-25 06:28] LABS: Band 6 % (5-11); Lymphocytes 10 % (21-51); Monocytes 8 % (0-10); Neutrophil 76 % (42-75)
[2023-03-25] MEDS: Mometasone/Formoterol 200/5 60 PUFF INH SCH ×2 (08:10→19:13)
[2023-03-25] MEDS: Cefepime 2 GM in Sodium Chloride 0.9% 100 ML IVPB SCH ×2 (08:24→20:57)
[2023-03-25] MEDS: Montelukast Sodium 10 mg Tablet PO SCH (08:24)
[2023-03-25] MEDS: Aspirin 81 mg Enteric Coated Tablet PO SCH (08:25)
[2023-03-25] MEDS: Senokot S 8.6-50 MG TAB PO SCH ×2 (08:25→20:58)
[2023-03-25] MEDS: Sotalol HCl 80 MG TAB PO SCH (08:25)
[2023-03-25] MEDS: Finasteride 5 MG TAB PO SCH (08:25)
[2023-03-25] MEDS: Apixaban 5 MG TAB PO SCH ×2 (08:25→20:58)
[2023-03-25] MEDS: guaiFENesin ER 600 MG TAB PO SCH ×2 (08:25→20:57)
[2023-03-25] MEDS: Sertraline 100 MG TAB PO SCH (08:25)
[2023-03-25] MEDS: predniSONE 50 MG TAB PO SCH (08:25)
[2023-03-25] MEDS: Furosemide 20 MG TAB PO SCH (08:25)
[2023-03-25] MEDS: Thiamine HCl 200 MG/2 ML VIAL SLOW IVP SCH (13:28)
[2023-03-25] MEDS ORDERED: predniSONE 20 MG TAB PO SCH ×2 (20:15→21:00)
[2023-03-25] MEDS: Atorvastatin Calcium 20 MG TAB PO SCH (20:58)
[2023-03-25] MEDS: Tamsulosin HCl 0.4 MG CAP PO SCH (20:58)
[2023-03-25] MEDS: Melatonin 3 MG TAB PO PRN (21:04)
[2023-03-26] MEDS: Ipratropium/Albuterol 3 ML NEB NEB SCH ×6 (02:42→22:49)
[2023-03-26] MEDS: Mometasone/Formoterol 200/5 60 PUFF INH SCH ×2 (07:10→19:08)
[2023-03-26] MEDS: Cefepime 2 GM in Sodium Chloride 0.9% 100 ML IVPB SCH ×2 (09:27→20:58)
[2023-03-26] MEDS: Sertraline 100 MG TAB PO SCH (09:35)
[2023-03-26] MEDS: Sotalol HCl 80 MG TAB PO SCH ×2 (09:35→09:38)
[2023-03-26] MEDS: guaiFENesin ER 600 MG TAB PO SCH ×2 (09:36→20:59)
[2023-03-26] MEDS: Furosemide 20 MG TAB PO SCH (09:36)
[2023-03-26] MEDS: Senokot S 8.6-50 MG TAB PO SCH ×2 (09:36→21:01)
[2023-03-26] MEDS: Finasteride 5 MG TAB PO SCH (09:37)
[2023-03-26] MEDS: Montelukast Sodium 10 mg Tablet PO SCH (09:38)
[2023-03-26] MEDS: Aspirin 81 mg Enteric Coated Tablet PO SCH (09:39)
[2023-03-26] MEDS: Apixaban 5 MG TAB PO SCH ×2 (09:39→20:59)
[2023-03-26] MEDS: Thiamine HCl 200 MG/2 ML VIAL SLOW IVP SCH (14:07)
[2023-03-26] MEDS: predniSONE 20 MG TAB PO SCH (21:00)
[2023-03-26] MEDS: Atorvastatin Calcium 20 MG TAB PO SCH (21:00)
[2023-03-26] MEDS: Tamsulosin HCl 0.4 MG CAP PO SCH (21:00)
[2023-03-26] MEDS: Melatonin 3 MG TAB PO PRN (21:06)
[2023-03-27] MEDS: Ipratropium/Albuterol 3 ML NEB NEB SCH ×6 (02:13→23:03)
[2023-03-27] MEDS: Mometasone/Formoterol 200/5 60 PUFF INH SCH ×2 (07:55→20:56)
[2023-03-27] MEDS: Apixaban 5 MG TAB PO SCH ×2 (09:32→20:32)
[2023-03-27] MEDS: guaiFENesin ER 600 MG TAB PO SCH ×2 (09:32→20:36)
[2023-03-27] MEDS: Senokot S 8.6-50 MG TAB PO SCH (09:34)
[2023-03-27] MEDS: Aspirin 81 mg Enteric Coated Tablet PO SCH (09:45)
[2023-03-27] MEDS: Furosemide 20 MG TAB PO SCH (09:45)
[2023-03-27] MEDS: Finasteride 5 MG TAB PO SCH (09:45)
[2023-03-27] MEDS: Sertraline 100 MG TAB PO SCH (09:46)
[2023-03-27] MEDS: Montelukast Sodium 10 mg Tablet PO SCH (09:46)
[2023-03-27] MEDS ORDERED: Senokot S 8.6-50 MG TAB PO PRN (10:51)
[2023-03-27] MEDS: Thiamine HCl 200 MG/2 ML VIAL SLOW IVP SCH (13:33)
[2023-03-27 15:52] LABS: Actual Bicarbonate (HCO3v) 44.7 mEq/L (22-28); Base Excess 15.6 mEq/L (-2 - +2); Calcium, Ionized (venous) 1.15 mmol/L (1.16-1.32); Chloride (VBG) 92 mmol/L (98-106); Hematocrit-VBG 33 % (42.0-52.0); Hemoglobin (Hb) 11.3 g/dL (12.6-17.4); Potassium (VBG) 4.84 mmol/L (3.70-5.30); Puncture Site Other Site; RapidComm Collect By LAB; Sodium 139.2 mmol/L (133-146); pH (venous) 7.343 (7.32-7.43)
[2023-03-27 15:53] LABS: Actual Bicarbonate (HCO3v) 39.9 mEq/L (22-28); Base Excess 17.9 mEq/L (-2 - +2); Calcium, Ionized (venous) 0.93 mmol/L (1.16-1.32); Chloride (VBG) 96 mmol/L (98-106); Critical Notified By: CP.PH; Hematocrit-VBG 34 % (42.0-52.0); Hemoglobin (Hb) 11.6 g/dL (12.6-17.4); Potassium (VBG) 4.66 mmol/L (3.70-5.30); Puncture Site Other Site; Sodium 137.6 mmol/L (133-146); pH (venous) 7.659 (7.32-7.43)
[2023-03-27] MEDS: Melatonin 3 MG TAB PO PRN (20:31)
[2023-03-27] MEDS: predniSONE 20 MG TAB PO SCH (20:32)
[2023-03-27] MEDS: Tamsulosin HCl 0.4 MG CAP PO SCH (20:32)
[2023-03-27] MEDS: Atorvastatin Calcium 20 MG TAB PO SCH (20:32)
[2023-03-28] MEDS: Ipratropium/Albuterol 3 ML NEB NEB SCH ×3 (03:00→11:10)
[2023-03-28] MEDS: Mometasone/Formoterol 200/5 60 PUFF INH SCH (07:40)
[2023-03-28 08:22] VITALS: BP 130/70; TEMP 98.3
[2023-03-28 08:50] VITALS: BMI 24.5
[2023-03-28] MEDS: Aspirin 81 mg Enteric Coated Tablet PO SCH (09:17)
[2023-03-28] MEDS: Apixaban 5 MG TAB PO SCH (09:17)
[2023-03-28] MEDS: Furosemide 20 MG TAB PO SCH (09:17)
[2023-03-28] MEDS: Sertraline 100 MG TAB PO SCH (09:17)
[2023-03-28] MEDS: guaiFENesin ER 600 MG TAB PO SCH (09:17)
[2023-03-28] MEDS: Montelukast Sodium 10 mg Tablet PO SCH ×2 (09:17→09:25)
[2023-03-28] MEDS: Finasteride 5 MG TAB PO SCH (09:17)
[2023-03-28] MEDS: Sotalol HCl 80 MG TAB PO SCH (09:18)
[2023-03-28] MEDS ORDERED: Apixaban 5 MG TAB PO SCH (21:00)
[2023-03-28] MEDS ORDERED: predniSONE 5 MG TAB PO SCH (21:00)
[2023-03-29] MEDS ORDERED: Apixaban 5 MG TAB PO SCH (21:00)
== END 2023-03-28 11:25 | DRG 193 ==
LOC: CSHERS 13:13 → CSHICU 19:48 → CSHTELE 03-22 14:45 → UNDODISIN 03-25 13:44
PROVIDERS: ADMIT Student in an Organized Health Care Education/Training Program; ATTEND Family Medicine
PROC: 5A09457 Assistance with Respiratory Ventilation, 24-96 Consecutive Hours, Continuous Positive Airway Pressure (ICD-10-PCS; principal; 2023-03-19)
PROC: 4A133R1 Monitoring of Arterial Saturation, Peripheral, Percutaneous Approach (ICD-10-PCS; 2023-03-19)
DX: J18.9 Pneumonia, unspecified organism (principal); G93.41 Metabolic encephalopathy; J96.21 Acute and chronic respiratory failure with hypoxia; I26.99 Other pulmonary embolism without acute cor pulmonale; J96.22 Acute and chronic respiratory failure with hypercapnia; J44.1 Chronic obstructive pulmonary disease with (acute) exacerbation; I50.42 Chronic combined systolic (congestive) and diastolic (congestive) heart failure; J44.0 Chronic obstructive pulmonary disease with (acute) lower respiratory infection; I25.10 Atherosclerotic heart disease of native coronary artery without angina pectoris; F32.A Depression, unspecified; K21.9 Gastro-esophageal reflux disease without esophagitis; N40.0 Benign prostatic hyperplasia without lower urinary tract symptoms; I11.0 Hypertensive heart disease with heart failure; E78.5 Hyperlipidemia, unspecified; I48.0 Paroxysmal atrial fibrillation; E11.9 Type 2 diabetes mellitus without complications; Z66 Do not resuscitate; E87.5 Hyperkalemia; Z20.822 Contact with and (suspected) exposure to COVID-19; Z99.81 Dependence on supplemental oxygen; Z88.5 Allergy status to narcotic agent; Z79.01 Long term (current) use of anticoagulants; Z79.899 Other long term (current) drug therapy; Z79.51 Long term (current) use of inhaled steroids; Z95.810 Presence of automatic (implantable) cardiac defibrillator; Z79.82 Long term (current) use of aspirin; Z86.711 Personal history of pulmonary embolism; Z87.891 Personal history of nicotine dependence
CPT/HCPCS: 36415; 36416; 36600; 70450; 71045; 71275; 80048; 80053; 80076; 80202; 81001; 82805; 83735; 83880; 84100; 84484; 85025; 87040; 87086; 87633; 87899; 93005; 93306; 93970; 94640; 94660; 94760; 94762; 96365; C9113; J0692; J0696; J1120; J1650; J2060; J2272; J2920; J3370; J3411; J3486; J3490; J7042; J7050; J7512; J7620; Q9967; U0002

== ENCOUNTER 2023-04-19 12:28 | Inpatient (IN) | payer OTHER ==
[2023-04-19] MEDS ORDERED: Dexamethasone 10 MG/ML VIAL ONE (12:59)
[2023-04-19] MEDS ORDERED: Magnesium 2 GM/50 ML BAG (IN WATER) ONE (13:00)
[2023-04-19] MEDS ORDERED: Ipratropium/Albuterol 3 ML NEB ONE ×2 (13:28→19:04)
[2023-04-19 13:39] LABS: #Eosinphils 0.1 10x3/uL (0.0-0.5); #Monocytes 0.6 10x3/uL (0.0-1.1); #Neutrophils 6.2 10x3/uL (1.5-8.4); %Basophils 0.4 % (0.0-2.0); %Eosinophils 0.8 % (0.0-6.0); %Lymphocytes 6.9 % (18.0-47.0); %Monocytes 8.2 % (0.0-10.0); %Neutrophils 83.2 % (40.0-75.0); Hematocrit 33.4 % (38.8-50.0); Hemoglobin 9.5 g/dL (13.5-17.5); Mean Corpuscular HGB CONC 28.4 g/dL (32.0-36.0); Mean Corpuscular Hemoglobin 26.8 pg (27.0-33.0); Mean Corpuscular Volume 94.1 fl (81.2-95.1); Mean Platelet Volume 9.3 fl (7.4-10.4); Platelet Count 227 10x3/uL (150-450); RBC Distribution Width 14.2 % (11.5-14.5); Red Blood Cell (RBC) Count 3.55 10x6/uL (4.32-5.72); White Blood Cell (WBC) Count 7.4 10x3/uL (3.5-10.5)
[2023-04-19 13:50] LABS: ALT (SGPT) 11 U/L (8-55); AST (SGOT) 17 U/L (5-34); Albumin 2.3 g/dL (3.4-4.8); Alkaline Phosphatase 77 U/L (40-110); BUN (Urea Nitrogen) 16 mg/dL (8.4-25.7); Bilirubin, Total 0.2 mg/dL (0.2-1.2); Calc. Creatinine Clearance 0 mL/min (70-130); Calcium 7.8 mg/dL (7.8-10.44); Estimated GFR 107; Globulin 1.9 g/dL (2.4-3.5); Glucose 109 mg/dL (83-110); Lipase 72 U/L (8-78); Protein, Total 4.2 g/dL (5.8-8.1)
[2023-04-19 13:55] LABS: Critical Notified By: CP.VR1; Critical Notified Time 1355
[2023-04-19 13:56] LABS: Troponin I Less than 0.010 ng/mL (< 0.028)
[2023-04-19 13:56] LABS: CO2 Tension 68.6 mmHg (35.0-45.0)
[2023-04-19 13:57] LABS: Base Excess (BEa) 5.4 mEq/L (-2.0 to +3.0); Carboxyhemoglobin (COHb) 1.2 gm% (0.0-3.0); Hematocrit-ABG 31 % (42.0-52.0); Hemoglobin (Hb) 10.6 g/dL (14.0-18.0)
[2023-04-19 13:58] LABS: Calcium, Ionized (arterial) 1.13 mmol/L (1.12-1.30); Potassium - ABG Lab 3.91 mmol/L (3.70-5.30)
[2023-04-19 13:58] LABS: Anion Gap 20 mmol/L (10-20); Carbon Dioxide 31 mmol/L (23-31); Chloride 95 mmol/L (98-107); Potassium 4.6 mmol/L (3.5-5.1); Sodium 141 mmol/L (136-145)
[2023-04-19 13:59] LABS: Puncture Site RRA
[2023-04-19 14:00] LABS: Draw Time: 1340; RapidComm Collect By CP.VR1; RapidComm User CP.VR1
[2023-04-19 14:01] LABS: Hypochromia SLIGHT = 6-15 cells (100X) (0-5/hpf); Microcytosis SLIGHT = 6-15 cells (100X) (0-5/hpf)
[2023-04-19 14:02] LABS: Basophilic Stippling SLIGHT = 1-2 cells (100X) (None Seen); Ovalocytes SLIGHT = 2-5 cells (100X) (0-1/hpf)
[2023-04-19 14:04] LABS: Platelet Adequacy Comment Appears Adequate
[2023-04-19] MEDS ORDERED: Iopamidol 370 76% 100 ML VIAL ONE (14:07)
[2023-04-19 15:05] LABS: SARS-CoV-2 NAA Rapid Test Not Detected (NotDetected)
[2023-04-19] MEDS ORDERED: Vancomycin 1 GM VIAL ONE (15:05)
[2023-04-19] MEDS ORDERED: Cefepime 2 GM VIAL ONE (15:06)
[2023-04-19] MEDS ORDERED: LevoFLOXacin 750 mg/D5W 150 ml Premix Bag ONE (15:06)
[2023-04-19] MEDS ORDERED: Dextrose 5% in Water 1,000 ML IV PRN (15:29)
[2023-04-19] MEDS ORDERED: HYDROcodone/Acetaminophen 5/325 mg Tablet PO PRN (15:29)
[2023-04-19] MEDS ORDERED: Dextrose 50% Abboject 50 ML SYRINGE SLOW IVP PRN (15:29)
[2023-04-19] MEDS ORDERED: Glucagon 1 MG/ML KIT IM PRN (15:29)
[2023-04-19] MEDS ORDERED: Ondansetron PF 4 MG/2 ML Vial IVP PRN (15:29)
[2023-04-19 16:21] LABS: Bilirubin Neg (Negative); Blood, Urine Negative (Negative); Clarity Clear (Clear); Glucose, Urine (Dipstick) Normal (Negative); Ketone, Urine Negative (Negative); Leukocyte Negative (Negative); Nitrite Negative (Negative); Protein, Urine (Dipstick) Negative (Neg-Trace); Urobilinogen Normal mg/dL (Less than 2)
[2023-04-19] MEDS ORDERED: Pantoprazole 40 MG VIAL IVP SCH (16:45)
[2023-04-19] MEDS ORDERED: Furosemide 40 MG/4 ML VIAL SLOW IVP SCH (16:45)
[2023-04-19 16:58] LABS: Bacteria/HPF Rare-Few HPF (None Seen); CAUTI Indications for Culture Alt mental st,lethar; RBC/HPF 0-3 HPF (0-3); Squamous Epithelial 0-3 HPF (0-3); WBC/HPF 0-3 HPF (0-3)
[2023-04-19 16:59] LABS: Urine Culture Reflex No No
[2023-04-19] MEDS ORDERED: Piperacillin/Tazobactam 3.375 GM in Sodium Chloride 0.9% 100 ML IVPB SCH ×3 (17:00→22:15)
[2023-04-19] MEDS ORDERED: Mometasone/Formoterol 200/5 60 PUFF INH SCH (18:30)
[2023-04-19] MEDS: Ipratropium/Albuterol 3 ML NEB NEB PRN (19:31)
[2023-04-19] MEDS ORDERED: Piperacillin/Tazobactam 3.375 GM VIAL ONE (20:15)
[2023-04-19] MEDS ORDERED: Cefepime 1 GM in Sodium Chloride 0.9% 100 ML IVPB SCH (21:00)
[2023-04-19] MEDS: Budesonide 0.5 MG/2 ML NEB NEB SCH ×3 (21:30→21:50)
[2023-04-19] MEDS: Melatonin 3 MG TAB PO SCH (22:01)
[2023-04-19] MEDS ORDERED: Apixaban 5 MG TAB ONE (22:09)
[2023-04-19] MEDS: Apixaban 5 MG TAB PO SCH (22:16)
[2023-04-19] MEDS: Atorvastatin Calcium 20 MG TAB PO SCH (22:16)
[2023-04-19] MEDS ORDERED: methylPREDNISolone Sod Succ 40 MG VIAL ONE (23:16)
[2023-04-19] MEDS: methylPREDNISolone Sod Succ 40 MG VIAL IVP SCH (23:23)
[2023-04-20] MEDS: methylPREDNISolone Sod Succ 40 MG VIAL IVP SCH ×5 (00:32→23:00)
[2023-04-20] MEDS: Piperacillin/Tazobactam 3.375 GM in Sodium Chloride 0.9% 100 ML IVPB SCH ×3 (00:33→17:15)
[2023-04-20 00:42] VITALS: BMI 26.4
[2023-04-20] MEDS: HumaLOG 300 UNITS/3 ML VIAL SC PRN ×2 (01:10→12:36)
[2023-04-20] MEDS ORDERED: Piperacillin/Tazobactam 3.375 GM in Sodium Chloride 0.9% 100 ML IVPB SCH (02:00)
[2023-04-20] MEDS: Acetaminophen 325 MG TAB PO PRN ×2 (02:31→17:18)
[2023-04-20 03:54] LABS: #Monocytes 0.1 10x3/uL (0.0-1.1); %Lymphocytes 4.3 % (18.0-47.0); %Monocytes 2.6 % (0.0-10.0); %Neutrophils 92.4 % (40.0-75.0); Hematocrit 32.1 % (38.8-50.0); Hemoglobin 9.3 g/dL (13.5-17.5); Mean Corpuscular Hemoglobin 26.6 pg (27.0-33.0); Mean Corpuscular Volume 91.7 fl (81.2-95.1); Mean Platelet Volume 9.3 fl (7.4-10.4); Platelet Count 254 10x3/uL (150-450); RBC Distribution Width 14.4 % (11.5-14.5); White Blood Cell (WBC) Count 5.4 10x3/uL (3.5-10.5)
[2023-04-20 03:56] LABS: ALT (SGPT) 11 U/L (8-55); AST (SGOT) 13 U/L (5-34); Albumin 2.4 g/dL (3.4-4.8); Alkaline Phosphatase 73 U/L (40-110); Anion Gap 10 mmol/L (10-20); BUN (Urea Nitrogen) 14 mg/dL (8.4-25.7); Bilirubin, Total 0.2 mg/dL (0.2-1.2); Calc. Creatinine Clearance 179 mL/min (70-130); Calcium 8.4 mg/dL (7.8-10.44); Carbon Dioxide 37 mmol/L (23-31); Chloride 93 mmol/L (98-107); Estimated GFR 102; Globulin 2.5 g/dL (2.4-3.5); Glucose 230 mg/dL (83-110); Potassium 4.3 mmol/L (3.5-5.1); Protein, Total 4.9 g/dL (5.8-8.1); Sodium 136 mmol/L (136-145)
[2023-04-20 06:25] LABS: Actual Bicarbonate (HCO3v) 37.8 mEq/L (22-28); Calcium, Ionized (venous) 1.09 mmol/L (1.16-1.32); Chloride (VBG) 94 mmol/L (98-106); Hematocrit-VBG 31 % (42.0-52.0); Hemoglobin (Hb) 10.6 g/dL (12.6-17.4); Potassium (VBG) 4.13 mmol/L (3.70-5.30); Puncture Site Other Site; pH (venous) 7.398 (7.32-7.43)
[2023-04-20] MEDS: Furosemide 40 MG/4 ML VIAL SLOW IVP SCH (08:24)
[2023-04-20] MEDS: Pantoprazole 40 MG VIAL IVP SCH (08:24)
[2023-04-20] MEDS: Sertraline 100 MG TAB PO SCH (08:25)
[2023-04-20] MEDS: Apixaban 5 MG TAB PO SCH ×2 (08:25→21:31)
[2023-04-20] MEDS: Tamsulosin HCl 0.4 MG CAP PO SCH (08:25)
[2023-04-20] MEDS: Finasteride 5 MG TAB PO SCH (08:25)
[2023-04-20] MEDS ORDERED: Furosemide 20 MG TAB PO SCH (09:00)
[2023-04-20] MEDS ORDERED: FLU VACC QS2023(65UP)/MF59C/PF 60 MCG/0.5 ML SYRINGE IM ONE (09:00)
[2023-04-20] MEDS: Azithromycin 250 MG TAB PO SCH (11:19)
[2023-04-20] MEDS: Sotalol HCl 80 MG TAB PO SCH (11:20)
[2023-04-20] MEDS: Ipratropium/Albuterol 3 ML NEB NEB PRN ×2 (11:30→19:24)
[2023-04-20] MEDS: Budesonide 0.5 MG/2 ML NEB NEB SCH (19:22)
[2023-04-20] MEDS: Atorvastatin Calcium 20 MG TAB PO SCH (21:31)
[2023-04-20] MEDS: Melatonin 3 MG TAB PO SCH (21:31)
[2023-04-21] MEDS: Piperacillin/Tazobactam 3.375 GM in Sodium Chloride 0.9% 100 ML IVPB SCH ×4 (00:31→23:31)
[2023-04-21 03:28] LABS: Actual Bicarbonate (HCO3v) 49.1 mEq/L (22-28); Base Excess 21.5 mEq/L (-2 - +2); Calcium, Ionized (venous) 1.09 mmol/L (1.16-1.32); Chloride (VBG) 93 mmol/L (98-106); Hematocrit-VBG 32 % (42.0-52.0); Hemoglobin (Hb) 10.8 g/dL (12.6-17.4); Puncture Site Other Site; Sodium 136.1 mmol/L (133-146); pH (venous) 7.444 (7.32-7.43)
[2023-04-21 03:44] LABS: #Monocytes 0.3 10x3/uL (0.0-1.1); #Neutrophils 7.3 10x3/uL (1.5-8.4); %Basophils 0.1 % (0.0-2.0); %Lymphocytes 3.4 % (18.0-47.0); %Neutrophils 91.9 % (40.0-75.0); Hematocrit 33.3 % (38.8-50.0); Hemoglobin 9.6 g/dL (13.5-17.5); Mean Corpuscular HGB CONC 28.8 g/dL (32.0-36.0); Mean Corpuscular Hemoglobin 26.4 pg (27.0-33.0); Mean Corpuscular Volume 91.7 fl (81.2-95.1); Mean Platelet Volume 9.1 fl (7.4-10.4); Platelet Count 279 10x3/uL (150-450); RBC Distribution Width 14.1 % (11.5-14.5); Red Blood Cell (RBC) Count 3.63 10x6/uL (4.32-5.72); White Blood Cell (WBC) Count 7.9 10x3/uL (3.5-10.5)
[2023-04-21 04:03] LABS: BUN (Urea Nitrogen) 13 mg/dL (8.4-25.7); Calc. Creatinine Clearance 185 mL/min (70-130); Calcium 8.6 mg/dL (7.8-10.44); Estimated GFR 103; Glucose 151 mg/dL (83-110)
[2023-04-21 04:10] LABS: Anion Gap 16 mmol/L (10-20); Carbon Dioxide 37 mmol/L (23-31); Chloride 91 mmol/L (98-107); Potassium 4.8 mmol/L (3.5-5.1); Sodium 139 mmol/L (136-145)
[2023-04-21] MEDS: methylPREDNISolone Sod Succ 40 MG VIAL IVP SCH ×4 (04:44→21:39)
[2023-04-21 04:45] LABS: Platelet Adequacy Comment Appears Adequate
[2023-04-21 04:46] LABS: Hypochromia SLIGHT = 6-15 cells (100X) (0-5/hpf)
[2023-04-21] MEDS: Furosemide 40 MG/4 ML VIAL SLOW IVP SCH (08:50)
[2023-04-21] MEDS: Sotalol HCl 80 MG TAB PO SCH (08:51)
[2023-04-21] MEDS: Pantoprazole 40 MG VIAL IVP SCH (08:56)
[2023-04-21] MEDS: Azithromycin 250 MG TAB PO SCH (08:58)
[2023-04-21] MEDS: Finasteride 5 MG TAB PO SCH (08:59)
[2023-04-21] MEDS: Sertraline 100 MG TAB PO SCH (08:59)
[2023-04-21] MEDS: Apixaban 5 MG TAB PO SCH ×2 (08:59→21:39)
[2023-04-21] MEDS: Tamsulosin HCl 0.4 MG CAP PO SCH (08:59)
[2023-04-21] MEDS: Ipratropium/Albuterol 3 ML NEB NEB PRN ×2 (10:30→14:00)
[2023-04-21] MEDS: Budesonide 0.5 MG/2 ML NEB NEB SCH ×2 (10:35→19:25)
[2023-04-21] MEDS: Melatonin 3 MG TAB PO SCH (21:39)
[2023-04-21] MEDS: Atorvastatin Calcium 20 MG TAB PO SCH (21:39)
[2023-04-21] MEDS: HumaLOG 300 UNITS/3 ML VIAL SC PRN (21:39)
[2023-04-22 03:56] LABS: Actual Bicarbonate (HCO3v) 46.9 mEq/L (22-28); Base Excess 18.1 mEq/L (-2 - +2); Chloride (VBG) 91 mmol/L (98-106); Hematocrit-VBG 33 % (42.0-52.0); Hemoglobin (Hb) 11.3 g/dL (12.6-17.4); Potassium (VBG) 4.46 mmol/L (3.70-5.30); Puncture Site Other Site; RapidComm Collect By CBL; Sodium 136.2 mmol/L (133-146); pH (venous) 7.374 (7.32-7.43)
[2023-04-22 04:19] LABS: BUN (Urea Nitrogen) 19 mg/dL (8.4-25.7); Calc. Creatinine Clearance 173 mL/min (70-130); Calcium 8.8 mg/dL (7.8-10.44); Estimated GFR 101; Glucose 143 mg/dL (83-110)
[2023-04-22 04:26] LABS: Anion Gap 16 mmol/L (10-20); Carbon Dioxide 38 mmol/L (23-31); Chloride 89 mmol/L (98-107); Potassium 4.7 mmol/L (3.5-5.1); Sodium 138 mmol/L (136-145)
[2023-04-22] MEDS: methylPREDNISolone Sod Succ 40 MG VIAL IVP SCH ×4 (04:26→21:58)
[2023-04-22 04:34] LABS: #Monocytes 0.4 10x3/uL (0.0-1.1); #Neutrophils 9.2 10x3/uL (1.5-8.4); %Basophils 0.1 % (0.0-2.0); %Lymphocytes 3.4 % (18.0-47.0); %Monocytes 3.9 % (0.0-10.0); Hemoglobin 10.2 g/dL (13.5-17.5); Mean Corpuscular HGB CONC 29.1 g/dL (32.0-36.0); Mean Corpuscular Hemoglobin 26.8 pg (27.0-33.0); Mean Corpuscular Volume 92.1 fl (81.2-95.1); Mean Platelet Volume 9.1 fl (7.4-10.4); Platelet Count 292 10x3/uL (150-450); RBC Distribution Width 14.1 % (11.5-14.5)
[2023-04-22] MEDS: Budesonide 0.5 MG/2 ML NEB NEB SCH ×2 (07:30→18:35)
[2023-04-22] MEDS: Furosemide 40 MG/4 ML VIAL SLOW IVP SCH (11:29)
[2023-04-22] MEDS: Azithromycin 250 MG TAB PO SCH (11:29)
[2023-04-22] MEDS: Tamsulosin HCl 0.4 MG CAP PO SCH (11:29)
[2023-04-22] MEDS: Pantoprazole 40 MG VIAL IVP SCH (11:29)
[2023-04-22] MEDS: Sertraline 100 MG TAB PO SCH (11:29)
[2023-04-22] MEDS: Apixaban 5 MG TAB PO SCH ×2 (11:30→20:12)
[2023-04-22] MEDS: Sotalol HCl 80 MG TAB PO SCH (11:30)
[2023-04-22] MEDS: Finasteride 5 MG TAB PO SCH (11:31)
[2023-04-22] MEDS: Piperacillin/Tazobactam 3.375 GM in Sodium Chloride 0.9% 100 ML IVPB SCH ×3 (11:31→23:01)
[2023-04-22] MEDS: HumaLOG 300 UNITS/3 ML VIAL SC PRN ×2 (17:00→20:25)
[2023-04-22] MEDS: Ipratropium/Albuterol 3 ML NEB NEB PRN (18:27)
[2023-04-22] MEDS: Atorvastatin Calcium 20 MG TAB PO SCH (20:12)
[2023-04-22] MEDS: Melatonin 3 MG TAB PO SCH (20:13)
[2023-04-23 03:23] LABS: Actual Bicarbonate (HCO3v) 46.7 mEq/L (22-28); Base Excess 17.6 mEq/L (-2 - +2); Calcium, Ionized (venous) 1.09 mmol/L (1.16-1.32); Chloride (VBG) 90 mmol/L (98-106); Hematocrit-VBG 34 % (42.0-52.0); Hemoglobin (Hb) 11.4 g/dL (12.6-17.4); Potassium (VBG) 3.91 mmol/L (3.70-5.30); Puncture Site Other Site; RapidComm Collect By CBL; Sodium 135.8 mmol/L (133-146); pH (venous) 7.364 (7.32-7.43)
[2023-04-23] MEDS: Ipratropium/Albuterol 3 ML NEB NEB PRN ×3 (03:25→20:05)
[2023-04-23] MEDS: methylPREDNISolone Sod Succ 40 MG VIAL IVP SCH ×4 (03:40→23:14)
[2023-04-23 03:47] LABS: Hemoglobin 10.3 g/dL (13.5-17.5); Mean Corpuscular HGB CONC 28.6 g/dL (32.0-36.0); Mean Corpuscular Hemoglobin 26.1 pg (27.0-33.0); Mean Corpuscular Volume 91.4 fl (81.2-95.1); Mean Platelet Volume 9.2 fl (7.4-10.4); Platelet Count 285 10x3/uL (150-450); RBC Distribution Width 13.9 % (11.5-14.5); Red Blood Cell (RBC) Count 3.94 10x6/uL (4.32-5.72); White Blood Cell (WBC) Count 9.3 10x3/uL (3.5-10.5)
[2023-04-23 03:52] LABS: MDiff Complete? YES
[2023-04-23 04:13] LABS: BUN (Urea Nitrogen) 22 mg/dL (8.4-25.7); Calc. Creatinine Clearance 163 mL/min (70-130); Calcium 8.3 mg/dL (7.8-10.44); Estimated GFR 99; Glucose 248 mg/dL (83-110)
[2023-04-23 04:18] LABS: Platelet Adequacy Comment Appears Adequate
[2023-04-23 04:20] LABS: Anion Gap 14 mmol/L (10-20); Carbon Dioxide 40 mmol/L (23-31); Chloride 88 mmol/L (98-107); Sodium 138 mmol/L (136-145)
[2023-04-23 04:22] LABS: Hypochromia SLIGHT = 6-15 cells (100X) (0-5/hpf)
[2023-04-23 04:23] LABS: Band 8 % (5-11); Eosinophils 2 % (0-10); Lymphocytes 5 % (21-51); Monocytes 5 % (0-10); Neutrophil 80 % (42-75)
[2023-04-23] MEDS: Acetaminophen 325 MG TAB PO PRN (05:32)
[2023-04-23] MEDS: HumaLOG 300 UNITS/3 ML VIAL SC PRN ×3 (05:34→16:10)
[2023-04-23] MEDS: Budesonide 0.5 MG/2 ML NEB NEB SCH ×2 (07:15→20:15)
[2023-04-23] MEDS: Furosemide 40 MG/4 ML VIAL SLOW IVP SCH (08:35)
[2023-04-23] MEDS: Pantoprazole 40 MG VIAL IVP SCH (08:35)
[2023-04-23] MEDS: Sertraline 100 MG TAB PO SCH (08:36)
[2023-04-23] MEDS: Finasteride 5 MG TAB PO SCH (08:36)
[2023-04-23] MEDS: Apixaban 5 MG TAB PO SCH ×2 (08:36→20:01)
[2023-04-23] MEDS: Tamsulosin HCl 0.4 MG CAP PO SCH (08:36)
[2023-04-23] MEDS: Azithromycin 250 MG TAB PO SCH (08:36)
[2023-04-23] MEDS: Piperacillin/Tazobactam 3.375 GM in Sodium Chloride 0.9% 100 ML IVPB SCH ×3 (08:36→23:14)
[2023-04-23] MEDS ORDERED: cefTRIAXone\\ROCEPHIN 1 GM in Sodium Chloride 0.9% 100 ML IVPB SCH (14:00)
[2023-04-23] MEDS: Atorvastatin Calcium 20 MG TAB PO SCH (20:01)
[2023-04-23] MEDS: Melatonin 3 MG TAB PO SCH (20:01)
[2023-04-24] MEDS: Ipratropium/Albuterol 3 ML NEB NEB PRN ×2 (01:00→20:40)
[2023-04-24] MEDS: methylPREDNISolone Sod Succ 40 MG VIAL IVP SCH ×2 (03:42→16:07)
[2023-04-24 04:20] LABS: #Monocytes 0.6 10x3/uL (0.0-1.1); #Neutrophils 9.3 10x3/uL (1.5-8.4); %Basophils 0.1 % (0.0-2.0); %Lymphocytes 2.5 % (18.0-47.0); %Monocytes 5.4 % (0.0-10.0); %Neutrophils 91.5 % (40.0-75.0); Hematocrit 37.1 % (38.8-50.0); Hemoglobin 10.9 g/dL (13.5-17.5); Mean Corpuscular HGB CONC 29.4 g/dL (32.0-36.0); Mean Corpuscular Hemoglobin 26.1 pg (27.0-33.0); Mean Corpuscular Volume 88.8 fl (81.2-95.1); Mean Platelet Volume 9.3 fl (7.4-10.4); Platelet Count 275 10x3/uL (150-450); RBC Distribution Width 13.9 % (11.5-14.5); Red Blood Cell (RBC) Count 4.18 10x6/uL (4.32-5.72); White Blood Cell (WBC) Count 10.2 10x3/uL (3.5-10.5)
[2023-04-24 04:37] LABS: BUN (Urea Nitrogen) 23 mg/dL (8.4-25.7); Calc. Creatinine Clearance 182 mL/min (70-130); Calcium 8.5 mg/dL (7.8-10.44); Estimated GFR 102; Glucose 171 mg/dL (83-110)
[2023-04-24 04:44] LABS: Anion Gap 17 mmol/L (10-20); Carbon Dioxide 38 mmol/L (23-31); Chloride 88 mmol/L (98-107); Potassium 4.2 mmol/L (3.5-5.1); Sodium 139 mmol/L (136-145)
[2023-04-24] MEDS: Budesonide 0.5 MG/2 ML NEB NEB SCH ×2 (07:30→20:55)
[2023-04-24] MEDS ORDERED: methylPREDNISolone Sod Succ 40 MG VIAL IVP SCH (10:00)
[2023-04-24] MEDS: Apixaban 5 MG TAB PO SCH ×2 (10:02→21:09)
[2023-04-24] MEDS: Tamsulosin HCl 0.4 MG CAP PO SCH (10:02)
[2023-04-24] MEDS: Sertraline 100 MG TAB PO SCH (10:02)
[2023-04-24] MEDS: Finasteride 5 MG TAB PO SCH (10:02)
[2023-04-24] MEDS: Sotalol HCl 80 MG TAB PO SCH (10:03)
[2023-04-24] MEDS: Piperacillin/Tazobactam 3.375 GM in Sodium Chloride 0.9% 100 ML IVPB SCH ×3 (10:03→23:31)
[2023-04-24] MEDS: Furosemide 40 MG/4 ML VIAL SLOW IVP SCH (10:03)
[2023-04-24] MEDS: Acetaminophen 325 MG TAB PO PRN (21:07)
[2023-04-24] MEDS: Atorvastatin Calcium 20 MG TAB PO SCH (21:09)
[2023-04-24] MEDS: Melatonin 3 MG TAB PO SCH (21:09)
[2023-04-25 04:47] LABS: #Monocytes 0.7 10x3/uL (0.0-1.1); #Neutrophils 8.7 10x3/uL (1.5-8.4); %Basophils 0.1 % (0.0-2.0); %Monocytes 7.4 % (0.0-10.0); %Neutrophils 88.8 % (40.0-75.0); Hemoglobin 10.9 g/dL (13.5-17.5); Mean Corpuscular HGB CONC 29.5 g/dL (32.0-36.0); Mean Corpuscular Hemoglobin 26.2 pg (27.0-33.0); Mean Corpuscular Volume 88.9 fl (81.2-95.1); Mean Platelet Volume 9.3 fl (7.4-10.4); Platelet Count 278 10x3/uL (150-450); RBC Distribution Width 13.9 % (11.5-14.5); Red Blood Cell (RBC) Count 4.16 10x6/uL (4.32-5.72); White Blood Cell (WBC) Count 9.8 10x3/uL (3.5-10.5)
[2023-04-25] MEDS: methylPREDNISolone Sod Succ 40 MG VIAL IVP SCH (04:54)
[2023-04-25 05:06] LABS: BUN (Urea Nitrogen) 23 mg/dL (8.4-25.7); Calc. Creatinine Clearance 191 mL/min (70-130); Calcium 8.4 mg/dL (7.8-10.44); Estimated GFR 104; Glucose 165 mg/dL (83-110)
[2023-04-25 05:13] LABS: Anion Gap 11 mmol/L (10-20); Carbon Dioxide 43 mmol/L (23-31); Chloride 88 mmol/L (98-107); Potassium 3.8 mmol/L (3.5-5.1); Sodium 138 mmol/L (136-145)
[2023-04-25] MEDS: Ipratropium/Albuterol 3 ML NEB NEB PRN ×2 (07:45→19:12)
[2023-04-25] MEDS: Budesonide 0.5 MG/2 ML NEB NEB SCH ×2 (07:45→19:18)
[2023-04-25] MEDS: Piperacillin/Tazobactam 3.375 GM in Sodium Chloride 0.9% 100 ML IVPB SCH ×2 (08:25→16:25)
[2023-04-25] MEDS: Furosemide 40 MG/4 ML VIAL SLOW IVP SCH (08:25)
[2023-04-25] MEDS: Sertraline 100 MG TAB PO SCH (08:26)
[2023-04-25] MEDS: Tamsulosin HCl 0.4 MG CAP PO SCH (08:26)
[2023-04-25] MEDS: Sotalol HCl 80 MG TAB PO SCH (08:26)
[2023-04-25] MEDS: Apixaban 5 MG TAB PO SCH ×2 (08:27→20:43)
[2023-04-25] MEDS: Finasteride 5 MG TAB PO SCH (08:27)
[2023-04-25] MEDS: Acetaminophen 325 MG TAB PO PRN (08:30)
[2023-04-25] MEDS ORDERED: methylPREDNISolone 4 mg Tablet PO SCH (09:00)
[2023-04-25] MEDS: HumaLOG 300 UNITS/3 ML VIAL SC PRN ×3 (12:03→20:41)
[2023-04-25] MEDS: Acetaminophen 500 MG TAB PO PRN ×2 (16:26→22:45)
[2023-04-25] MEDS: Melatonin 3 MG TAB PO SCH (20:43)
[2023-04-25] MEDS: Atorvastatin Calcium 20 MG TAB PO SCH (20:43)
[2023-04-26 04:36] LABS: #Monocytes 1.2 10x3/uL (0.0-1.1); %Basophils 0.1 % (0.0-2.0); %Lymphocytes 3.3 % (18.0-47.0); %Monocytes 8.5 % (0.0-10.0); %Neutrophils 87.2 % (40.0-75.0); Hematocrit 38.7 % (38.8-50.0); Hemoglobin 11.5 g/dL (13.5-17.5); Mean Corpuscular HGB CONC 29.7 g/dL (32.0-36.0); Mean Corpuscular Volume 87.6 fl (81.2-95.1); Mean Platelet Volume 9.4 fl (7.4-10.4); Platelet Count 304 10x3/uL (150-450); Red Blood Cell (RBC) Count 4.42 10x6/uL (4.32-5.72); White Blood Cell (WBC) Count 13.8 10x3/uL (3.5-10.5)
[2023-04-26 04:46] LABS: BUN (Urea Nitrogen) 27 mg/dL (8.4-25.7); Calc. Creatinine Clearance 179 mL/min (70-130); Calcium 8.4 mg/dL (7.8-10.44); Estimated GFR 102; Glucose 127 mg/dL (83-110)
[2023-04-26 05:00] LABS: Anion Gap 14 mmol/L (10-20); Carbon Dioxide 40 mmol/L (23-31); Chloride 91 mmol/L (98-107); Potassium 3.9 mmol/L (3.5-5.1); Sodium 141 mmol/L (136-145)
[2023-04-26] MEDS: Acetaminophen 500 MG TAB PO PRN ×4 (06:25→22:24)
[2023-04-26] MEDS: Ipratropium/Albuterol 3 ML NEB NEB PRN ×3 (07:05→19:05)
[2023-04-26] MEDS: Sertraline 100 MG TAB PO SCH (08:42)
[2023-04-26] MEDS: Sotalol HCl 80 MG TAB PO SCH (08:42)
[2023-04-26] MEDS: Apixaban 5 MG TAB PO SCH ×2 (08:42→20:04)
[2023-04-26] MEDS: Tamsulosin HCl 0.4 MG CAP PO SCH (08:42)
[2023-04-26] MEDS: Finasteride 5 MG TAB PO SCH (08:42)
[2023-04-26] MEDS ORDERED: methylPREDNISolone 4 mg Tablet PO SCH (09:00)
[2023-04-26] MEDS: Budesonide 0.5 MG/2 ML NEB NEB SCH ×2 (10:28→19:00)
[2023-04-26] MEDS: HumaLOG 300 UNITS/3 ML VIAL SC PRN ×2 (11:59→16:52)
[2023-04-26] MEDS: Atorvastatin Calcium 20 MG TAB PO SCH (20:05)
[2023-04-26] MEDS: Fluticasone Propionate Nasal Spray 16 gm Bottle NASAL PRN (20:05)
[2023-04-26] MEDS ORDERED: Loratadine 10 MG TAB PO SCH (20:45)
[2023-04-26] MEDS: Melatonin 3 MG TAB PO SCH (21:21)
[2023-04-26] MEDS: Benzocaine/Menthol 1 LOZ LOZ PO PRN (22:21)
[2023-04-27] MEDS: Benzocaine/Menthol 1 LOZ LOZ PO PRN (02:46)
[2023-04-27 03:37] LABS: #Eosinphils 0.1 10x3/uL (0.0-0.5); #Neutrophils 9.8 10x3/uL (1.5-8.4); %Basophils 0.2 % (0.0-2.0); %Eosinophils 0.5 % (0.0-6.0); %Lymphocytes 4.3 % (18.0-47.0); %Monocytes 8.4 % (0.0-10.0); %Neutrophils 85.3 % (40.0-75.0); Hematocrit 38.5 % (38.8-50.0); Hemoglobin 11.4 g/dL (13.5-17.5); Mean Corpuscular HGB CONC 29.6 g/dL (32.0-36.0); Mean Corpuscular Volume 87.7 fl (81.2-95.1); Mean Platelet Volume 9.1 fl (7.4-10.4); Platelet Count 242 10x3/uL (150-450); RBC Distribution Width 14.3 % (11.5-14.5); Red Blood Cell (RBC) Count 4.39 10x6/uL (4.32-5.72); White Blood Cell (WBC) Count 11.5 10x3/uL (3.5-10.5)
[2023-04-27] MEDS: Ipratropium/Albuterol 3 ML NEB NEB PRN ×3 (03:40→12:00)
[2023-04-27 03:50] LABS: BUN (Urea Nitrogen) 24 mg/dL (8.4-25.7); Calc. Creatinine Clearance 194 mL/min (70-130); Calcium 8.3 mg/dL (7.8-10.44); Estimated GFR 104; Glucose 132 mg/dL (83-110); Magnesium 2.1 mg/dL (1.6-2.6)
[2023-04-27] MEDS: Acetaminophen 500 MG TAB PO PRN ×2 (03:53→22:02)
[2023-04-27 03:57] LABS: Anion Gap 17 mmol/L (10-20); Carbon Dioxide 34 mmol/L (23-31); Chloride 91 mmol/L (98-107); Potassium 3.9 mmol/L (3.5-5.1); Sodium 138 mmol/L (136-145)
[2023-04-27] MEDS: Budesonide 0.5 MG/2 ML NEB NEB SCH ×2 (08:02→19:10)
[2023-04-27] MEDS: Tamsulosin HCl 0.4 MG CAP PO SCH (08:55)
[2023-04-27] MEDS: Sotalol HCl 80 MG TAB PO SCH (08:55)
[2023-04-27] MEDS: Finasteride 5 MG TAB PO SCH (08:55)
[2023-04-27] MEDS: Sertraline 100 MG TAB PO SCH (08:55)
[2023-04-27] MEDS: Apixaban 5 MG TAB PO SCH ×2 (08:55→20:43)
[2023-04-27] MEDS: methylPREDNISolone 4 mg Tablet PO SCH (08:55)
[2023-04-27] MEDS: Fluticasone Propionate Nasal Spray 16 gm Bottle NASAL PRN (08:57)
[2023-04-27] MEDS ORDERED: guaiFENesin ER 600 MG TAB PO SCH (13:00)
[2023-04-27] MEDS ORDERED: Doxycycline 100 MG CAP PO SCH (13:00)
[2023-04-27] MEDS: Triple Antibiotic Oint 1 GM Packet TOP SCH ×2 (14:09→20:45)
[2023-04-27] MEDS: cefTRIAXone\\ROCEPHIN 2 GM in Sodium Chloride 0.9% 100 ML IVPB SCH (14:10)
[2023-04-27 16:18] LABS: Actual Bicarbonate (HCO3v) 46.2 mEq/L (22-28); Base Excess 16.9 mEq/L (-2 - +2); Calcium, Ionized (venous) 1.14 mmol/L (1.16-1.32); Chloride (VBG) 91 mmol/L (98-106); Hematocrit-VBG 35 % (42.0-52.0); Hemoglobin (Hb) 11.9 g/dL (12.6-17.4); Potassium (VBG) 3.73 mmol/L (3.70-5.30); Puncture Site Other Site; Sodium 135 mmol/L (133-146); pH (venous) 7.351 (7.32-7.43)
[2023-04-27] MEDS: Ipratropium/Albuterol 3 ML NEB NEB SCH ×2 (16:30→19:15)
[2023-04-27] MEDS ORDERED: AcetaZOLAMIDE 250 MG TAB PO SCH (16:45)
[2023-04-27] MEDS: HumaLOG 300 UNITS/3 ML VIAL SC PRN ×2 (17:34→21:12)
[2023-04-27] MEDS: Atorvastatin Calcium 20 MG TAB PO SCH (20:43)
[2023-04-27] MEDS: Melatonin 3 MG TAB PO SCH (20:43)
[2023-04-27] MEDS: Multivit, Therapeutic 1 TAB PO SCH (20:44)
[2023-04-27] MEDS: guaiFENesin ER 600 MG TAB PO SCH (20:44)
[2023-04-27] MEDS: Doxycycline 100 MG CAP PO SCH (20:44)
[2023-04-28 04:25] LABS: #Eosinphils 0.1 10x3/uL (0.0-0.5); #Monocytes 0.9 10x3/uL (0.0-1.1); #Neutrophils 9.2 10x3/uL (1.5-8.4); %Basophils 0.3 % (0.0-2.0); %Lymphocytes 5.2 % (18.0-47.0); %Monocytes 8.4 % (0.0-10.0); %Neutrophils 83.7 % (40.0-75.0); Hematocrit 38.3 % (38.8-50.0); Hemoglobin 11.6 g/dL (13.5-17.5); Mean Corpuscular HGB CONC 30.3 g/dL (32.0-36.0); Mean Corpuscular Hemoglobin 26.4 pg (27.0-33.0); Platelet Count 222 10x3/uL (150-450); RBC Distribution Width 14.4 % (11.5-14.5)
[2023-04-28 04:41] LABS: Phosphorus 2.7 mg/dL (2.3-4.7)
[2023-04-28 04:43] LABS: Anion Gap 10 mmol/L (10-20); BUN (Urea Nitrogen) 20 mg/dL (8.4-25.7); Calc. Creatinine Clearance 201 mL/min (70-130); Calcium 8.3 mg/dL (7.8-10.44); Carbon Dioxide 36 mmol/L (23-31); Chloride 93 mmol/L (98-107); Estimated GFR 105; Glucose 126 mg/dL (83-110); Potassium 3.7 mmol/L (3.5-5.1); Sodium 135 mmol/L (136-145)
[2023-04-28] MEDS ORDERED: HYDROcodone/Acetaminophen 5/325 mg Tablet PO SCH (06:30)
[2023-04-28] MEDS: Ipratropium/Albuterol 3 ML NEB NEB SCH ×4 (06:59→19:08)
[2023-04-28] MEDS: Budesonide 0.5 MG/2 ML NEB NEB SCH ×2 (06:59→19:18)
[2023-04-28] MEDS: Sertraline 100 MG TAB PO SCH (08:53)
[2023-04-28] MEDS: methylPREDNISolone 4 mg Tablet PO SCH (08:53)
[2023-04-28] MEDS: Apixaban 5 MG TAB PO SCH ×2 (08:53→21:59)
[2023-04-28] MEDS: Doxycycline 100 MG CAP PO SCH ×2 (08:53→21:59)
[2023-04-28] MEDS: Triple Antibiotic Oint 1 GM Packet TOP SCH ×2 (08:53→14:06)
[2023-04-28] MEDS: Tamsulosin HCl 0.4 MG CAP PO SCH (08:53)
[2023-04-28] MEDS: guaiFENesin ER 600 MG TAB PO SCH ×2 (08:53→21:59)
[2023-04-28] MEDS: Finasteride 5 MG TAB PO SCH (08:53)
[2023-04-28] MEDS: Sotalol HCl 80 MG TAB PO SCH (08:54)
[2023-04-28] MEDS ORDERED: AcetaZOLAMIDE 250 MG TAB PO SCH (09:00)
[2023-04-28] MEDS: Acetaminophen 500 MG TAB PO PRN (12:24)
[2023-04-28] MEDS ORDERED: Magnesium 2 GM/50 ML(in water) 2 GM in Premix Bag 1 BAG IVPB SCH (13:30)
[2023-04-28] MEDS: cefTRIAXone\\ROCEPHIN 2 GM in Sodium Chloride 0.9% 100 ML IVPB SCH (14:05)
[2023-04-28] MEDS ORDERED: Potassium Chloride 20 MEQ TAB PO SCH (17:00)
[2023-04-28] MEDS: Multivit, Therapeutic 1 TAB PO SCH (21:58)
[2023-04-28] MEDS: Atorvastatin Calcium 20 MG TAB PO SCH (21:58)
[2023-04-28] MEDS: Melatonin 3 MG TAB PO SCH (21:59)
[2023-04-29 04:01] LABS: Actual Bicarbonate (HCO3v) 30.1 mEq/L (22-28); Base Excess 1.9 mEq/L (-2 - +2); Calcium, Ionized (venous) 1.17 mmol/L (1.16-1.32); Chloride (VBG) 95 mmol/L (98-106); Hematocrit-VBG 36 % (42.0-52.0); Hemoglobin (Hb) 12.4 g/dL (12.6-17.4); Potassium (VBG) 4.06 mmol/L (3.70-5.30); Puncture Site Other Site; RapidComm Collect By CBL; Sodium 132 mmol/L (133-146); pH (venous) 7.282 (7.32-7.43)
[2023-04-29 04:02] LABS: #Eosinphils 0.1 10x3/uL (0.0-0.5); #Monocytes 1.1 10x3/uL (0.0-1.1); #Neutrophils 9.3 10x3/uL (1.5-8.4); %Basophils 0.2 % (0.0-2.0); %Eosinophils 0.5 % (0.0-6.0); %Lymphocytes 5.7 % (18.0-47.0); %Monocytes 9.9 % (0.0-10.0); %Neutrophils 82.2 % (40.0-75.0); Hematocrit 36.9 % (38.8-50.0); Mean Corpuscular HGB CONC 29.8 g/dL (32.0-36.0); Mean Corpuscular Volume 87.2 fl (81.2-95.1); Mean Platelet Volume 9.8 fl (7.4-10.4); Platelet Count 229 10x3/uL (150-450); RBC Distribution Width 14.4 % (11.5-14.5); Red Blood Cell (RBC) Count 4.23 10x6/uL (4.32-5.72); White Blood Cell (WBC) Count 11.3 10x3/uL (3.5-10.5)
[2023-04-29 04:11] LABS: Anion Gap 10 mmol/L (10-20); BUN (Urea Nitrogen) 17 mg/dL (8.4-25.7); Calc. Creatinine Clearance 185 mL/min (70-130); Calcium 8.6 mg/dL (7.8-10.44); Carbon Dioxide 34 mmol/L (23-31); Chloride 94 mmol/L (98-107); Estimated GFR 103; Glucose 130 mg/dL (83-110); Potassium 4.2 mmol/L (3.5-5.1); Sodium 134 mmol/L (136-145)
[2023-04-29] MEDS: Ipratropium/Albuterol 3 ML NEB NEB PRN (05:39)
[2023-04-29] MEDS: Triple Antibiotic Oint 1 GM Packet TOP SCH ×5 (05:50→20:17)
[2023-04-29] MEDS: Budesonide 0.5 MG/2 ML NEB NEB SCH ×2 (07:35→20:05)
[2023-04-29] MEDS: Ipratropium/Albuterol 3 ML NEB NEB SCH ×4 (07:35→19:55)
[2023-04-29] MEDS: Doxycycline 100 MG CAP PO SCH ×2 (11:07→20:18)
[2023-04-29] MEDS: Tamsulosin HCl 0.4 MG CAP PO SCH (11:07)
[2023-04-29] MEDS: Potassium Chloride 20 MEQ TAB PO SCH (11:08)
[2023-04-29] MEDS: Sotalol HCl 80 MG TAB PO SCH (11:10)
[2023-04-29] MEDS: Sertraline 100 MG TAB PO SCH (11:11)
[2023-04-29] MEDS: Apixaban 5 MG TAB PO SCH ×2 (11:14→20:17)
[2023-04-29] MEDS: Finasteride 5 MG TAB PO SCH (11:14)
[2023-04-29] MEDS: methylPREDNISolone 4 mg Tablet PO SCH (11:14)
[2023-04-29] MEDS: guaiFENesin ER 600 MG TAB PO SCH ×2 (11:15→20:17)
[2023-04-29] MEDS: Multivit, Therapeutic 1 TAB PO SCH (20:17)
[2023-04-29] MEDS: Atorvastatin Calcium 20 MG TAB PO SCH (20:18)
[2023-04-29] MEDS: Melatonin 3 MG TAB PO SCH (20:18)
[2023-04-30] MEDS: Ipratropium/Albuterol 3 ML NEB NEB PRN (02:35)
[2023-04-30] MEDS: Budesonide 0.5 MG/2 ML NEB NEB SCH (07:30)
[2023-04-30] MEDS: Ipratropium/Albuterol 3 ML NEB NEB SCH ×2 (07:30→09:35)
[2023-04-30] MEDS: Apixaban 5 MG TAB PO SCH (08:31)
[2023-04-30] MEDS: Tamsulosin HCl 0.4 MG CAP PO SCH (08:31)
[2023-04-30] MEDS: methylPREDNISolone 4 mg Tablet PO SCH (08:31)
[2023-04-30] MEDS: Finasteride 5 MG TAB PO SCH (08:31)
[2023-04-30] MEDS: Sertraline 100 MG TAB PO SCH (08:31)
[2023-04-30] MEDS: Potassium Chloride 20 MEQ TAB PO SCH (08:31)
[2023-04-30] MEDS: Doxycycline 100 MG CAP PO SCH (08:31)
[2023-04-30] MEDS: guaiFENesin ER 600 MG TAB PO SCH (08:31)
[2023-04-30] MEDS: Triple Antibiotic Oint 1 GM Packet TOP SCH (08:32)
[2023-04-30] MEDS: Acetaminophen 500 MG TAB PO PRN (08:37)
[2023-04-30] MEDS ORDERED: Non-Formulary Medication 1 EACH (Tiotropium Bromide 4 GM Inhaler) IH SCH (09:00)
[2023-04-30] MEDS ORDERED: Sotalol HCl 80 MG TAB PO SCH ×2 (09:00)
[2023-04-30] MEDS ORDERED: Aspirin 81 mg Enteric Coated Tablet PO SCH (09:00)
[2023-04-30 13:07] VITALS: BP 123/67; TEMP 98.4
== END 2023-04-30 15:18 | DRG 177 ==
LOC: CSHERS 12:28 → SUATTDRO 12:28 → CSHTELE 15:00 → CSHERHOLD 15:59 → CSHIMCU 04-20 → CSHTELE 04-20 13:38 → CSHICU 04-22 11:08 → CSHTELE 04-22 11:19 → CSHICU 04-22 13:12 → CSHTELE 04-24 16:50
PROVIDERS: ADMIT Internal Medicine; ATTEND Family Medicine
PROC: 4A133R1 Monitoring of Arterial Saturation, Peripheral, Percutaneous Approach (ICD-10-PCS; principal; 2023-04-19)
PROC: 5A09457 Assistance with Respiratory Ventilation, 24-96 Consecutive Hours, Continuous Positive Airway Pressure (ICD-10-PCS; 2023-04-21)
DX: J69.0 Pneumonitis due to inhalation of food and vomit (principal); J96.21 Acute and chronic respiratory failure with hypoxia; J96.22 Acute and chronic respiratory failure with hypercapnia; I50.42 Chronic combined systolic (congestive) and diastolic (congestive) heart failure; J44.1 Chronic obstructive pulmonary disease with (acute) exacerbation; J44.0 Chronic obstructive pulmonary disease with (acute) lower respiratory infection; I47.19 Other supraventricular tachycardia; I48.19 Other persistent atrial fibrillation; I48.0 Paroxysmal atrial fibrillation; E11.9 Type 2 diabetes mellitus without complications; I25.10 Atherosclerotic heart disease of native coronary artery without angina pectoris; E78.5 Hyperlipidemia, unspecified; K21.9 Gastro-esophageal reflux disease without esophagitis; N40.0 Benign prostatic hyperplasia without lower urinary tract symptoms; I11.0 Hypertensive heart disease with heart failure; F39 Unspecified mood [affective] disorder; G47.33 Obstructive sleep apnea (adult) (pediatric); J61 Pneumoconiosis due to asbestos and other mineral fibers; Z88.5 Allergy status to narcotic agent; Z99.81 Dependence on supplemental oxygen; Z87.891 Personal history of nicotine dependence; Z79.01 Long term (current) use of anticoagulants; Z95.810 Presence of automatic (implantable) cardiac defibrillator; Z79.899 Other long term (current) drug therapy; Z11.52 Encounter for screening for COVID-19
CPT/HCPCS: 36415; 36416; 36600; 71045; 71275; 74230; 80048; 80053; 81001; 82805; 83605; 83690; 83735; 83880; 84100; 84484; 85025; 87040; 87070; 87205; 90471; 90694; 93005; 93010; 94640; 94660; 94760; 94762; 96365; 96366; 96368; 96375; C9113; G0008; J0692; J0696; J1100; J1815; J1940; J1956; J2543; J2920; J3370; J3475; J3490; J7509; J7611; J7620; J7626; Q9967